=== PATIENT | female | born 1975 | race Caucasian/White ===

== ENCOUNTER 2022-02-12 08:12 | Outpatient (CLI) | payer OTHER, SELFPAY ==
--- NOTE | 2022-02-12 08:15 | CRLHL7_ITS ---
For Patients: As a result of the Cures Act, medical imaging exams and procedure reports are released immediately into your electronic medical record. You may view this report before your referring provider. If you have questions, please contact your health care provider. BILATERAL MAMMOGRAM WITH COMPUTER-AIDED DETECTION AND TOMOSYNTHESIS TECHNIQUE: CC and MLO views were obtained. These mammographic images have been obtained using full-field digital technique. These mammographic images were interpreted with the benefit of computer-aided detection. Breast Tomosynthesis was used in this interpretation. COMPARISON FILM: 01/16/21, 12/21/19, 11/24/18. FINDINGS: The breasts are heterogeneously dense, which may obscure small masses IMPRESSION: There is no radiographic evidence for malignancy. ASSESSMENT: BI-RADS Category 1: Negative RECOMMENDATION: Routine screening mammogram in 1 year. A lay language report of this examination will be provided to the patient. Donald Chase M.D. Diagnostic Radiologist [email or web address] TALON/kimo / be/Dictated by: Donald Chase MD @ 02/12/2022 9:37:00 AM (Electronically Signed)
== END 2022-02-12 08:13 | disposition home or self-care (01) ==
LOC: MAMMO 08:13
PROVIDERS: PCP Family Medicine; Visit Provider Family Medicine
DX: Z12.31 Encounter for screening mammogram for malignant neoplasm of breast (principal); R92.2 Inconclusive mammogram
CPT/HCPCS: 77063; 77067

== ENCOUNTER 2023-01-14 09:25 | Outpatient (CLI) | payer OTHER, SELFPAY | END 2023-01-14 09:26 | disposition home or self-care (01) | LOC: NFLDREF 01-15 10:08 | PROVIDERS: PCP Family Medicine; Referring Provider Family Medicine; Visit Provider Family Medicine | DX: Z00.00 Encounter for general adult medical examination without abnormal findings (principal); G43.909 Migraine, unspecified, not intractable, without status migrainosus; F41.8 Other specified anxiety disorders; M26.629 Arthralgia of temporomandibular joint, unspecified side; M54.2 Cervicalgia | CPT/HCPCS: 80053; 80076; 84439; 84443 ==

== ENCOUNTER 2023-02-18 07:57 | Outpatient (CLI) | payer OTHER, SELFPAY ==
--- NOTE | 2023-02-18 08:15 | CRLHL7_ITS ---
For Patients: As a result of the Century Cures Act, medical imaging exams and procedure reports are released immediately into your electronic medical record. You may view this report before your referring provider. If you have questions, please contact your health care provider. BILATERAL DIGITAL SCREENING MAMMOGRAM WITH TOMOSYNTHESIS AND COMPUTER-AIDED DETECTION CLINICAL HISTORY: Routine screening exam. COMPARISON: 02/12/22, 01/16/2021, 12/21/2019. TECHNIQUE: Digital mammogram in CC and MLO projections including computer-aided detection (CAD). Tomosynthesis utilized. BREAST COMPOSITION: The breasts are heterogeneously dense, which may obscure small masses. FINDINGS: RIGHT Breast: No suspicious findings. LEFT Breast: Focal asymmetric density 12 o`clock 3 cm from the nipple. IMPRESSION: LEFT breast asymmetry/mass. RECOMMENDATIONS: Additional mammographic views of the LEFT breast including 3D spot compression CC/MLO. LEFT breast ultrasound may also be required. BI-RADS Category 0: Incomplete: Need Additional Imaging Evaluation and/or Prior Mammograms for Comparison [facility] will contact the patient for follow-up. A lay language report of this examination will be provided to the patient. Dictated by Donald Chase MD @ 02/18/2023 10:49:12 AM jj/Dictated by: Donald Chase MD @ 02/18/2023 10:49:00 AM (Electronically Signed)
== END 2023-02-18 07:58 | disposition home or self-care (01) ==
LOC: MAMMO 07:58
PROVIDERS: PCP Family Medicine; Visit Provider Family Medicine
DX: Z12.31 Encounter for screening mammogram for malignant neoplasm of breast (principal); N63.20 Unspecified lump in the left breast, unspecified quadrant
CPT/HCPCS: 77063; 77067

== ENCOUNTER 2023-03-04 07:29 | Outpatient (CLI) | payer OTHER, SELFPAY ==
--- NOTE | 2023-03-04 07:45 | CRLHL7_ITS ---
For Patients: As a result of the Cures Act, medical imaging exams and procedure reports are released immediately into your electronic medical record. You may view this report before your referring provider. If you have questions, please contact your health care provider. LEFT DIAGNOSTIC MAMMOGRAM WITH TOMOSYNTHESIS LEFT BREAST ULTRASOUND CLINICAL HISTORY: LEFT breast mass/asymmetry. COMPARISON: 02/18/2023, 02/12/2022, 01/16/2021, 12/21/2019. TECHNIQUE: Digital LEFT mammogram in 2 projections. Real-time ultrasound imaging of LEFT breast with imaging documentation. Scanning was performed by both the technologist and the radiologist. BREAST COMPOSITION: There are scattered areas of fibroglandular density. FINDINGS: 3D spot compression CC/MLO left breast mammogram images submitted. Decreased conspicuity of the previously noted asymmetric density. No architectural distortion. Targeted sonogram LEFT breast 12 o`clock 3 cm from the nipple performed. In this location, there is no abnormality. Normal fibroglandular tissue is present. No fibrocystic change or solid mass. IMPRESSION: No evidence of malignancy. Normal additional mammogram images and normal targeted LEFT breast ultrasound. RECOMMENDATIONS: Annual bilateral screening mammography. BI-RADS Category 1: Negative Results and recommendations discussed with the patient. A lay language report of this examination will be provided to the patient. Dictated by Donald Chase MD @ 03/04/2023 9:01:49 AM/CRL:paul PT/Dictated by: Donald Chase MD @ 03/04/2023 9:01:00 AM (Electronically Signed)
--- NOTE | 2023-03-04 08:15 | CRLHL7_ITS ---
For Patients: As a result of the Century Cures Act, medical imaging exams and procedure reports are released immediately into your electronic medical record. You may view this report before your referring provider. If you have questions, please contact your health care provider. PLEASE SEE LEFT DIAGNOSTIC MAMMOGRAM OF SAME DAY. CRL:paul PT/Dictated by: Donald Chase MD @ 03/04/2023 9:01:00 AM (Electronically Signed)
== END 2023-03-04 07:30 | disposition home or self-care (01) ==
PROVIDERS: PCP Family Medicine; Visit Provider Family Medicine
DX: N63.20 Unspecified lump in the left breast, unspecified quadrant (principal); R92.8 Other abnormal and inconclusive findings on diagnostic imaging of breast
CPT/HCPCS: 76642; 77065; G0279

== ENCOUNTER 2023-05-06 08:52 | Outpatient (CLI) | payer OTHER, SELFPAY ==
--- NOTE | 2023-05-06 09:15 | CRLHL7_ITS ---
For Patients: As a result of the Century Cures Act, medical imaging exams and procedure reports are released immediately into your electronic medical record. You may view this report before your referring provider. If you have questions, please contact your health care provider. CLINICAL HISTORY: FAMILY HX RCC COMPARISON: none TECHNIQUE: Corbin scale and color Doppler images were acquired of the kidneys and urinary bladder. FINDINGS: Sonographic images reveal a symmetric appearance of the kidneys. There is no evidence of hydronephrosis, mass or calculus. The right kidney measures 10.1cm in length and the left kidney measures 10.3cm in length. The renal cortex appears of normal thickness. Normal color Doppler imaging of both kidneys. The urinary bladder appears normal. There is no evidence of bladder calculi or diverticula. IMPRESSION: Normal renal ultrasound. No renal mass. Dictated by Donald Chase MD @ 05/06/2023 9:46:31 AM (Electronically Signed)
== END 2023-05-06 08:53 | disposition home or self-care (01) ==
LOC: US 08:52
PROVIDERS: PCP Family Medicine; Visit Provider Family Medicine
DX: Z80.51 Family history of malignant neoplasm of kidney (principal)
CPT/HCPCS: 76775

== ENCOUNTER 2024-02-10 08:59 | Outpatient (CLI) | payer OTHER, SELFPAY ==
--- OUTSIDE RECORDS SUMMARY | 2024-02-10 09:07 | XMS_ITS | Clinical Summary ---
Author Organization [facility] Address [address] [place] [address] Care Team Providers Care Magazine Grinder Loader Name Role Phone Sofía Mueller MD Unavailable [phone] Johnny Hamilton MD Primary Care Provider [phone] Allergies Active Allergy Reactions Criticality Noted Date Comments Amoxicillin Hives 04/24/2014 Cephalosporins Hives 04/24/2014 Gabapentin Other (See Comments),Swelling 2013 & pain Penicillins Hives 04/24/2014 Prednisone 03/22/2018 Sulfanilamide Hives 04/24/2014 Medications Medication Sig Dispensed Refills Start Date End Date Status VALACYCLOVIR HCL PO Take 2,000 mg by mouth 2 times daily as needed Active Calcium Carbonate (CALCIUM 600 PO) Take 1 tablet by mouth daily Active multivitamin w/minerals (THERA-VIT-M) tablet Take 1 tablet by mouth daily Active Ascorbic Acid (VITAMIN C PO) Take 1,000 mg by mouth daily Active Cholecalciferol (VITAMIN D3 PO) Take 5,000 Units by mouth daily Active cetirizine (ZYRTEC) 10 MG tablet Take 10 mg by mouth daily Active MAGNESIUM OXIDE PO Take 600 mg by mouth daily Active Recluse-3 Fatty Acids (OMEGA-3 FISH OIL PO) Take 1 g by mouth daily Active Probiotic Product (PROBIOTIC DAILY PO) Take 1 capsule by mouth daily Active drospirenone-ethinyl estradiol (RAYMOND) 3-0.02 MG tabletIndications:En counter for other contraceptive management Take 1 tablet by mouth daily 84 tablet 3 04/29/2022 Active Additional Information Patient not taking.Reported on 01/21/2023 Azelastine HCl 137 MCG/SPRAY SOLN SPRAY 1-2 SPRAYS INTO BOTH NOSTRILS TWICE A DAY NEEDED 12/27/2022 Active sertraline (ZOLOFT) 25 MG tablet 11/01/2022 Active propranolol ER (INDERAL LA) 60 MG 24 hr capsule TAKE 1 CAP BY MOUTH DAILY AT BEDTIME 12/28/2022 Active valACYclovir (VALTREX) 1000 mg tablet TAKE 2 TABS BY MOUTH TWICE DAILY NEEDED FOR COLD SORES 05/20/2022 Active diazepam (VALIUM) 2 MG tablet 1 - 2 MG (0.5 - 1 X 2 MG) ORALLY THREE TIMES A DAY NEEDED FOR MUSCLE SPASM 12/06/2022 Active norethindrone (MICRONOR) 0.35 MG tabletIndications:Bi rth control counseling Take 1 tablet (0.35 mg) by mouth daily 112 tablet 3 01/21/2023 Active Drospirenone 4 MG TABSIndications:Serena menopause,Encounter for other contraceptive management Take 4 mg by mouth daily 84 tablet 3 04/22/2023 Active Resolved Problems Problem Noted Date Diagnosed Date Resolved Date Pain in both hands 10/12/2018 9 Bilateral carpal tunnel syndrome 10/12/2018 01/05/2019 Encounters Date Type Department Care Team Description 12/29/2023 [facility] Medical Advice [facility] [address] [place] [address] Neda Su from Last 3 Months Family History Medical History Relation Comments Esophageal Cancer Father Relation Status Comments Father Social History Tobacco Use Types Packs/Day Years Used Date Smoking Tobacco: Never Smokeless Tobacco: Never Tobacco Cessation:Counseling Given: No Alcohol Use Standard Drinks/Week Comments Yes 0 (1 standard drink = 0.6 oz pur e alcohol) rare PHQ-2 Answer Date Recorded PHQ-2 Score 0 01/21/2023 Adolescent Education Answer Date Record ed Getting School Help Needed Not on file 03/25 Sex and Gender Information Value Date Recorded Sex Assigned at Not on file Gender Identity Not on file Sexual Orientation Straight 04/14/2021 8: 29 AM CDT Last Filed Vital Signs Vital Sign Reading Time Taken Comments Blood Pressure 110/70 04/22/2023 9:12 AM CDT Pulse 80 04/29/2022 10:19 AM CDT Temperature 36.9 ??C (98.5 ??F) 03/22/2018 8:29 PM CD T Respiratory Rate 18 03/22/2018 8:29 PM CDT Oxygen Saturation 96% 03/22/2018 10:00 PM CDT Inhaled Oxygen Concentration - - Weight 77.1 kg (170 lb) 04/22/2023 9:12 AM CDT Height 157.5 cm (5' 2) 04/22/2023 9:12 AM CDT Body Mass Index 31.09 04/22/2023 9:12 AM CDT Plan of Treatment Upcoming Encounters Date Type Department Care Team (Late st Contact Info) Description 05/04/2024 9:30 AM CDT Office Visit [facility] [address] [place] [address] Sofía Mueller MD [address] [place] [address] Health Maintenance Due Date Last Done Comments ADVANCE CARE PLANNING 1977 ANNUAL REVIEW OF HM ORDERS 1977 CT COLONOGRAPHY 1977 FIT 1977 FLEX SIG 1977 sDNA (Cologuard) 1977 COLONOSCOPY 1987 COLORECTAL CANCER SCREENING 1987 HIV SCREENING 1992 HEPATITIS C SCREENING 1995 HEPATITIS B IMMUNIZATION (1 of 3 - 19+ 3-dose series) 1996 LIPID 2017 GLUCOSE 03/22/2021 03/22/2018 MAMMO SCREENING 01/16/2022 01/16/2021 COVID-19 Vaccine (4 - 2022-2 4 season) 2023 05/24/2021, 08/20/2020, 07/23/2020 DTAP/TDAP/TD IMMUNIZATION (2 - Td or Tdap) 03/20/2023 03/20/2013 PHQ-2 (once per calendar year) 2023 01/21/2023, 04/29/2022, 04/21/2021 INFLUENZA VACCINE (#1) 2024 , 05/16/2020 YEARLY PREVENTIVE VISIT 04/22/2024 04/22/20 23, 04/21/2021 HPV TEST 04/21/2026 04/21/2021, 10/07/2016 PAP 04/21/2026 04/21/2021, 10/07/2016, 10/07/2016 HPV IMMUNIZATION Aged Out No longer e ligible based on patient's age to complete this topic IPV IMMUNIZATION Aged Out No longer e ligible based on patient's age to complete this topic MENINGITIS IMMUNIZATION Aged Out No l onger eligible based on patient's age to complete this topic Pneumococcal Vaccine: Pediatrics (0 to 5 Years) and At-Risk Patients (6 to 64 Years) Aged Out No longer eligible b ased on patient's age to complete this topic RSV MONOCLONAL ANTIBODY Aged Out No l onger eligible based on patient's age to complete this topic Procedures Procedure Name Priority Date/Time Associated Diagnosis Comments GYNECOLOGIC CYTOLOGY Routine 04/21/2021 10:29 AM CDT Pap smear for cervical cancer screening HPV HIGH RISK TYPES DNA CERVICAL Routine 04/21/2021 10:29 AM CDT Pap smear for cervical cancer screening COMPREHENSIVE METABOLIC PANEL STAT 03/22/2018 8:45 PM CDT PVC's (premature ventricular contractions) from Last 3 Months or Most Recently Relevant to Health Maintenance Results * Pap imaged thin layer screen with HPV - recommended age 30 - 65 (04/21/2021 10:29 AM CDT) Interpretation Negative for Intraepithelial Lesion or Malignancy (NILM) 04/23/2021 10:14 AM CDT [facility] Specimen Adequacy Satisfactory for evaluation, endocervical/logan sformation zone component absent 04/23/2021 10:14 AM CDT [facility] Clinical Information none 04/23/2021 10:14 AM CDT [facility] LMP/Menopause Date 04/17/2021 04/23/2021 10:14 AM CDT [facility] Reflex Testing Yes regardless of result 04/23/2021 10:14 AM CDT [facility] Previous Abnormal? No 04/23/2021 10:14 AM CDT [facility] Performing Labs The technical component of this testing was completed at [facility] 04/23/2021 10:14 AM CDT [facility] Brushing CERVIX UTERI STRUCTURE / Unknown 04/21/2021 10:29 AM CDT 04/21/2021 10:50 AM CDT Sofía MENDOZA [facility] [address] [place] [address], [facility] [phone] * HPV High Risk Types DNA Cervical (04/21/2021 10:29 AM CDT) Other HR HPV Negative Negative 04/27/2021 1:58 PM CDT [facility] HPV16 DNA Negative Negative 04/27/2021 1:58 PM CDT [facility] HPV18 DNA Negative Negative 04/27/2021 1:58 PM CDT [facility] FINAL DIAGNOSIS This patient's sample is negative for HPV DNA. This test was developed and its performance characteristics determined by the [facility], [facility]. It has not been cleared or approved by the FDA. The laboratory is regulated under CLIA as qualified to perform high-complexity testing. This test is used for clinical purposes. It should not be regarded as investigational or for research. METHODOLOGY: The Shikha Wes 4800 system uses automated extraction, simultaneous amplification of HPV (L1 region) and beta-globin, followed by real time detection of fluorescent labeled HPV and beta globin using specific oligonucleotide probes. The test specifically identified types HPV 16 DNA and HPV 18 DNA while concurrently detecting the rest of the high risk types (31, 33, 35, 39, 45, 51, 52, 56, 58, 59, 66 or 68). COMMENTS: This test is not intended for use as a screening device for woman under age 30 with normal cervical cytology. Results should be correlated with cytologic and histologic findings. Close clinical followup is recommended. 04/27/2021 1:58 PM CDT [facility] Brushing CERVIX UTERI STRUCTURE / Unknown Non-blood Collection / Unknown 04/21/2021 10:29 AM CDT 04/24/2021 9:06 AM CDT Sofía Mueller MD LAB - BLOOD ORDERABL ES [facility] [address] [place] [address], [facility] [phone] * Comprehensive metabolic panel (03/22/2018 8:45 PM CDT) Sodium 141 133 - 144 mmol/L 03/22/2018 9:[address] [facility] Potassium 3.5 3.4 - 5.3 mmol/L 03/22/2018 9:[address] [facility] Chloride 105 94 - 109 mmol/L 03/22/2018 9:[address] [facility] Carbon Dioxide 25 20 - 32 mmol/L 03/22/2018 9:[address] [facility] Anion Gap 11 3 - 14 mmol/L 03/22/2018 9:[address] [facility] Glucose 92 70 - 99 mg/dL 03/22/2018 9:[address] [facility] Urea Nitrogen 25 7 - 30 mg/dL 03/22/2018 9:[address] [facility] Creatinine 0.90 0.52 - 1.04 mg/dL 03/22/2018 9:[address] [facility] GFR Estimate 69 >60 mL/min/1.7 m2 03/22/2018 9:[address] [facility] Comment:Non GFR Calc GFR Estimate If Black 83 >60 mL/min/1.7 m2 03/22/2018 9:[address] [facility] Comment: GFR Calc Calcium 8.5 8.5 - 10.1 mg/dL 03/22/2018 9:[address] [facility] Bilirubin Total 0.3 0.2 - 1.3 mg/dL 03/22/2018 9:[address] [facility] Albumin 4.2 3.4 - 5.0 g/dL 03/22/2018 9:15 PM CDT [facility] Protein Total 7.4 6.8 - 8.8 g/dL 03/22/2018 9:15 PM CDT [facility] Alkaline Phosphatase 60 40 - 150 U/L 03/22/2018 9:15 PM CDT [facility] ALT 35 0 - 50 U/L 03/22/2018 9:15 PM CDT [facility] AST 21 0 - 45 U/L 03/22/2018 9:15 PM CDT [facility] Blood specimen (specimen) 03/22/2018 8:45 PM CDT 03/22/2018 8:46 PM CDT Teresa Harvey MD LAB - BLOOD ORDERA BLES [facility] [address] [place], [place] [address] [phone] from Last 3 Months or Most Recently Relevant to Health Maintenance Advance Directives For more information, please contact: [phone] * Full Code (Latest Code Status on File) Date Activated Date Inactivated Comments 05/28/2016 10:44 AM Care Teams Magazine Grinder Loader Relationship Specialty Start Date End Date Johnny Hamilton MD [address] [place], [place] [address] PCP - General 01/19/23 Sofía Mueller MD [address] [place] [address] Assigned OBGYN Provider 04/26/21
--- OUTSIDE RECORDS SUMMARY | 2024-02-10 09:08 | XMS_ITS | Clinical Summary ---
Author Organization [facility] Address [address] [place] [address] Care Team Providers Care Corporate Concierge Name Role Phone Unavailable Primary Care Provider Unavailabl e Source Comments You are receiving this document as you are listed as the primary care provider,follow-up provider, or the patient has been referred to you for consultation.This is in compliance with the Medicare and[facility] EHR Incentive Program,which states Providers who transition their patient to another setting of careor provider of care or refers their patient to another provider of care shouldprovide summary care record for each transition of care or referral. [facility] Allergies Active Allergy Reactions Criticality Noted Date Comments Cephalosporins 08/29/2010 PN: LW Reaction: HIVES Penicillins 08/29/2010 PN: LW Reaction: HIVES Review Contrast Media 08/29/2010 PN: LW CM1: >>> NO CONTRAST ADVERSE REACTION <<< Reaction : Sulfa Antibiotics 08/29/2010 PN: LW Reaction: HIVES Medications Medication Sig Dispensed Refills Start Date End Date Status unknown medication Indications: PN: 09/04/2010 Active doxycycline hyclate (AKA PERIOSTAT) 20 MG tablet Take 1 tablet by mouth 2 times daily. LW Addl Instr:Indicated for: Periodontitis 60 3 08/29/2010 Active Multiple Vitamins-Minerals (MULTIVITAMIN OR) Take 1 tablet by mouth daily (every 24 hours). 100 13 08/29/2010 Active Social History Tobacco Use Types Packs/Day Years Used Date Smoking Tobacco: Never Sex and Gender Information Value Date Recorded Sex Assigned at Not on file Gender Identity Not on file Sexual Orientation Not on file Last Filed Vital Signs Vital Sign Reading Time Taken Comments Blood Pressure - - Pulse - - Temperature 36.8 ??C (98.2 ??F) 09/04/2010 8:10 AM CS T C: 36.8 C Respiratory Rate - - Oxygen Saturation - - Inhaled Oxygen Concentration - - Weight - - Height - - Body Mass Index - - Plan of Treatment Health Maintenance Due Date Last Done Comments Cervical Cancer Screening Due 1977 Colon Cancer Screening Plan Due 1977 Hep C Screening (Preventive Services) 1977 Mammogram 1977 HIV Screening (Preventive Services) 1993 Adult Preventive Visit 1995 DTaP/Tdap/Td (1 - Tdap) 1996 HepB (1) 1996 Cholesterol 2022 COVID-19 Vaccine (1 - 2022-2 4 season) 2023 Influenza (#1) 2024 Zoster/Shingles (1 of 2) 2027 HepA Aged Out No longer eligi ble based on patient's age to complete this topic Hib Aged Out No longer eligi ble based on patient's age to complete this topic IPV (Polio) Aged Out No longer eligi ble based on patient's age to complete this topic MCV4 Aged Out No longer eligi ble based on patient's age to complete this topic Pneumococcal Aged Out No longer eligi ble based on patient's age to complete this topic
--- OUTSIDE RECORDS SUMMARY | 2024-02-10 09:08 | XMS_ITS | Encounter Summary ---
Author Organization [facility] Address [address] [place] [address]. [place] [address] Care Team Providers Care Field Consultant Name Role Phone Rashel Call MD Primary Care Provider Sofía Mueller MD Unavailable [phone] Johnny Hamilton MD Primary Care Provider [phone] Encounter Details Date Type Department Care Team (Late st Contact Info) Description 05/22/2021 MyC Medical Advice [facility] [address] [place] [address] Sofía Mueller MD [address] [place] [address] Contraceptive management (Primary Dx) Social History Tobacco Use Types Packs/Day Years Used Date Smoking Tobacco: Never Smokeless Tobacco: Never Alcohol Use Standard Drinks/Week Comments Yes 0 (1 standard drink = 0.6 oz pur e alcohol) rare PHQ-2 Answer Date Recorded PHQ-2 Score 0 04/21/2021 Sex and Gender Information Value Date Recorded Sex Assigned at Not on file Gender Identity Not on file Sexual Orientation Straight 04/14/2021 8: 29 AM CDT documented as of this encounter Plan of Treatment Upcoming Encounters Date Type Department Care Team (Late st Contact Info) Description 05/04/2024 9:30 AM CDT Office Visit [facility] [address] [place] [address] Sofía Mueller MD [address] [place] [address] documented as of this encounter Visit Diagnoses Diagnosis Contraceptive management- Primary Unspecified contraceptive management documented in this encounter Care Teams Field Consultant Relationship Specialty Start Date End Date Rashel Call MD PCP - General Family Practice 04/15/14 01/18/23 Johnny Hamilton MD [address] [place] [address] PCP - General 01/19/23 Sofía Mueller MD [address] [place] [address] Assigned OBGYN Provider 04/26/21 documented as of this encounter
--- OUTSIDE RECORDS SUMMARY | 2024-02-10 09:08 | XMS_ITS | Encounter Summary ---
Author Organization [facility] Address [address] [place] [address] Care Team Providers Care Roofing Foreman Name Role Phone Sofía Mueller MD Unavailable [phone] Johnny Hamilton MD Primary Care Provider [phone] Encounter Details Date Type Department Care Team (Late st Contact Info) Description 12/29/2023 MyC Medical Advice [facility] [address] [place] [phone] Neda Su Social History Tobacco Use Types Packs/Day Years [...] Encounters Date Type Department Care Team (Late Contact Info) Description 05/04/2024 9:30 AM CDT Office Visit [facility] [address] [place] [phone] Sofía Mueller MD [address] [place] [address] documented as of this encounter Visit Diagnoses Not on filedocumented in this encounter Care Teams Roofing Foreman Relationship Specialty Start Date End Date Johnny Hamilton MD [address] [place] [address] PCP - General 01/19/23 Sofía Mueller MD [address] [place] [address] Assigned OBGYN Provider 04/26/21 documented as of this encounter
--- OUTSIDE RECORDS SUMMARY | 2024-02-10 09:08 | XMS_ITS | Encounter Summary ---
Author Organization [place] Address [address] [place] [address]. [place] [address] Care Team Providers Care Fish Technologist Name Role Phone Rashel Call MD Primary Care Provider [phone] Sofía Mueller MD Unavailable [phone] Johnny Hamilton MD Primary Care Provider [phone] Encounter Details Date Type Department Care Team (Late st Contact Info) Description 02/20/2019 MyC Medical Advice [facility] [address] [facility] [address] [place], [place] [address] Jimime Owen DO [facility] [address] [place] [address] Social History Tobacco Use Types Packs/Day Years Used Date Smoking Tobacco: Never Smokeless Tobacco: Never Alcohol Use Standard Drinks/Week Comments Yes 0 (1 standard drink = 0.6 oz pur e alcohol) rare Sex and Gender Information Value Date Recorded Sex Assigned at Not on file Gender Identity Not on file Sexual Orientation Straight 04/14/2021 8: 29 AM CDT documented as of this encounter Plan of Treatment Upcoming Encounters Date Type Department Care Team (Late st Contact Info) Description 05/04/2024 9:30 AM CDT Office Visit [facility] [address] [place] [phone] Sofía Mueller MD [address] [place] [address] documented as of this encounter Visit Diagnoses Not on filedocumented in this encounter Care Teams Fish Technologist Relationship Specialty Start Date End Date Rashel Call MD PCP - General Family Practice 04/15/14 01/18/23 Johnny Hamilton MD [address] [place] [address] PCP - General 01/19/23 Sofía Mueller MD [address] [place] [address] Assigned OBGYN Provider 04/26/21 documented as of this encounter
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
--- OUTSIDE RECORDS SUMMARY | 2024-02-10 09:08 | XMS_ITS | Referral Summary ---
Author Organization [place] Address [address] [place] [address] Care Team Providers Care Volunteer Services Specialist Name Role Phone Sofía Mueller MD Unavailable [phone] Johnny Hamilton MD Primary Care Provider [phone] Encounters Date Type Department Care Team Description 12/29/2023 MyC Medical Advice [facility] [address] [place] [phone] Neda Su from Last 3 Months Allergies Active Allergy Reactions Criticality Noted Date [...] Take 600 mg by mouth daily Active [place]-3 Fatty Acids (OMEGA-3 FISH OIL PO) Take [...] 9 Bilateral carpal tunnel syndrome 10/12/2018 01/05/2019 Social History Tobacco Use Types Packs/Day Years [...] Description 05/04/2024 9:30 AM CDT Office Visit [facility] [address] [place] [address] Sofía Mueller MD [address] [place] [address] Procedures Procedure Name Priority Date/Time Associated Diagnosis [...] or Malignancy (NILM) 04/23/2021 10:14 AM CDT [facility] Specimen Adequacy Satisfactory for evaluation, endocervical/logan sformation zone component absent 04/23/2021 10:14 AM CDT [facility] Clinical Information none 04/23/2021 10:14 AM CDT [facility] LMP/Menopause Date 04/17/2021 04/23/2021 10:14 AM CDT [facility] Reflex Testing Yes regardless of result 04/23/2021 10:14 AM CDT [facility] Previous Abnormal? No 04/23/2021 10:14 AM CDT [facility] Performing Labs The technical component of this testing was completed at [facility] 04/23/2021 10:14 AM CDT [facility] Brushing CERVIX UTERI STRUCTURE / Unknown 04/21/2021 10:29 AM CDT 04/21/2021 10:50 AM CDT Sofía KAMARA - MARITZA MENDOZA [facility] [address] [place] [address], [facility] [phone] * HPV High Risk Types DNA Cervical (04/21/2021 10:29 AM CDT) Other HR HPV Negative Negative 04/27/2021 1:58 PM CDT [email or web address] HPV16 DNA Negative Negative 04/27/2021 1:58 PM CDT [facility] [email or web address] HPV18 DNA Negative Negative 04/27/2021 1:58 PM CDT [facility] [email or web address] FINAL DIAGNOSIS This patient's sample is negative for HPV DNA. This test was developed and its performance characteristics determined by the [facility], Molecular Diagnostics Laboratory. It has not been [...] followup is recommended. 04/27/2021 1:58 PM CDT [facility] Brushing CERVIX UTERI STRUCTURE / Unknown Non-blood Collection / Unknown 04/21/2021 10:29 AM CDT 04/24/2021 9:06 AM CDT Sofía Mueller MD LAB - BLOOD ORDERABL ES [facility] Molecular Diagnostics Lab [address] [place] [address], [facility] [phone] * Comprehensive metabolic panel (03/22/2018 8:45 PM CDT) Sodium 141 133 - 144 mmol/L 03/22/2018 9:15 PM [facility] Potassium 3.5 3.4 - 5.3 mmol/L 03/22/2018 9:15 PM [facility] Chloride 105 94 - 109 mmol/L 03/22/2018 9:15 PM [facility] Carbon Dioxide 25 20 - 32 mmol/L 03/22/2018 9:15 PM [facility] Anion Gap 11 3 - 14 mmol/L 03/22/2018 9:15 PM [facility] Glucose 92 70 - 99 mg/dL 03/22/2018 9:15 PM [facility] Urea Nitrogen 25 7 - 30 mg/dL 03/22/2018 9:15 PM [facility] Creatinine 0.90 0.52 - 1.04 mg/dL 03/22/2018 9:15 PM [facility] GFR Estimate 69 >60 mL/min/1.7 m2 03/22/2018 9:15 PM [facility] Comment:Non GFR Calc GFR Estimate If Black 83 >60 mL/min/1.7 m2 03/22/2018 9:15 PM [facility] Comment: GFR Calc Calcium 8.5 8.5 - 10.1 mg/dL 03/22/2018 9:15 PM [facility] Bilirubin Total 0.3 0.2 - 1.3 mg/dL 03/22/2018 9:15 PM CDT [facility] Albumin 4.2 3.4 - 5.0 g/dL 03/22/2018 9:15 PM CDT [facility] Protein Total 7.4 6.8 - 8.8 g/dL 03/22/2018 9:15 PM CDT [facility] Alkaline Phosphatase 60 40 - 150 U/L 03/22/2018 9:15 PM T [facility] ALT 35 0 - 50 U/L 03/22/2018 9:15 PM CDT [facility] AST 21 0 - 45 U/L 03/22/2018 9:15 PM CDT [facility] Blood specimen (specimen) 03/22/2018 8:45 PM CDT 03/22/2018 8:46 PM CDT Teresa Harvey MD LAB - BLOOD ORDERA BLES [facility] [address] [place] [address], [facility] [phone] from Last 3 Months or Most Recently Relevant to Health Maintenance Advance Directives For more information, please contact: [phone] * Full Code (Latest Code Status on File) Date Activated Date Inactivated Comments 05/28/2016 10:44 AM Care Teams Volunteer Services Specialist Relationship Specialty Start Date End Date Johnny Hamilton MD [address] [place] [address] PCP - General 01/19/23 Sofía Mueller MD [address] [place] [address] Assigned OBGYN Provider 04/26/21
--- OUTSIDE RECORDS SUMMARY | 2024-02-10 09:08 | XMS_ITS | Encounter Summary ---
Author Organization [place] Address [address] [place] [address]. [place] [address] Care Team Providers Care Intensivist Name Role Phone Rashel Call MD Primary Care Provider [phone] Sofía Mueller MD Unavailable [phone] Johnny Hamilton MD Primary Care Provider [phone] Encounter Details Date Type Department Care Team (Late st Contact Info) Description 07/30/2021 MyC Medical Advice [facility] [address] [place] [address] Sofía Mueller MD [address] [place] [address] Social History Tobacco Use Types Packs/Day Years [...] Office Visit [facility] [address] [place] [address] Sofía Mueller MD [address] [place] [address] documented as of this encounter Visit Diagnoses Not on filedocumented in this encounter Care Teams Intensivist Relationship Specialty Start Date End Date Rashel Call MD PCP - General Family Practice 04/15/14 01/18/23 Johnny Hamilton MD [address] [place] [address] PCP - General 01/19/23 Sofía Mueller MD [address] [place] [address] Assigned OBGYN Provider 04/26/21 documented as of this encounter
--- OUTSIDE RECORDS SUMMARY | 2024-02-10 09:08 | XMS_ITS | Clinical Summary ---
Author Organization [employer] Address [place], [place] [address] Care Team Providers Care Plywood And Veneer Repairer Name Role Phone Johnny Hamilton MD Primary Care Provider [phone] Rashel Call MD Unavailable [phone] Allergies Active Allergy Reactions Criticality Noted Date Comments Cefuroxime 04/07/2007 Gabapentin Edema 03/20/2013 Penicillins 04/07/2007 Sulfa (Sulfonamide Antibiotics) 11/2006 Medications Medication Sig Dispensed Refills Start Date End Date Status ZYRTEC ORAL None Entered 0 Active tiZANidine (ZANAFLEX) 2 mg tablet Take 1 tablet by mouth every 6 hours if needed for Muscle Spasm. Take 2 tablets at bedtime 0 03/20/2013 Active norethin larry-eth estrad-fe, 1.5-30 mg-mcg, (MICROGESTIN FE) 1.5 mg-30 mcg (21)/75 mg (7) tabletIndications:Enco unter for surveillance of contraceptives Take 1 tablet by mouth once daily. 84 tablet 4 09/26/2015 Active miscellaneous medical supply miscIndications:Unstab le ankle, unspecified laterality As directed. Please visit [email or web address] and purchase: EdemaWear Open Toe Stockings - Size Small (Grover Blue Stripe) 1 Each 08/05/2022 Active Active Problems Problem Noted Date Diagnosed Date ADHD (attention deficit hyperactivity disorder) 12/15/2012 BV (bacterial vaginosis) 03/18/2012 Pain in joint, ankle and foot 04/12/2007 Encounters Date Type Department Care Team Description 02/09/2024 3:00 PM CDT Office Visit [facility] [address] [place] [address] Jaun Sloan MD Arrived 02/07/2024 Travel 01/13/2024 Orders Only [facility] [address] [place] [address] Gracy Yan 1 scan: (1-Ord) Zio Report from Last 3 Months Immunizations Name Administration Dates Next Due Tdap 03/20/2013 Family History Medical History Relation Name Comments Cancer Father stomach /esopha chito Hypertension Father Arthritis Mother Diabetes Mother pre diabetic Hypertension Mother Allergies Sister 2 Relation Name Status Comments Brother 1 Alive Brother 2 Alive Father (Age 49 yrs) stomac h and esophagus cancer Maternal Grandfather Maternal Grandmother Mother Alive Paternal Grandfather Paternal Grandmother (Age 80's) ? Sister 1 Alive Sister 2 Social History Tobacco Use Types Packs/Day Years Used Date Smoking Tobacco: Never Smokeless Tobacco: Never Tobacco Cessation:Counseling Given: Yes Alcohol Use Standard Drinks/Week Comments Not Currently 0 (1 standard drink = 0.6 oz pur e alcohol) Very little--0-1 per month. Social Connections Answer Date Recorded Frequency of Communication with Friends and Fami ly Not on file 02/09/2024 Sex and Gender Information Value Date Recorded Sex Assigned at Not on file Gender Identity Not on file Sexual Orientation Not on file Obstetrics History Para Term AB IAB SAB Ectopic Multiple Livin g Live Births 0 0 0 0 0 0 0 0 0 0 Last Filed Vital Signs Vital Sign Reading Time Taken Comments Blood Pressure 110/70 09/26/2015 1:50 PM CDT Pulse 68 09/26/2015 1:50 PM CDT Temperature 37 ??C (98.6 ??F) 04/05/2015 1:09 PM CDT Respiratory Rate 14 04/05/2015 1:09 PM CDT Oxygen Saturation 98% 04/05/2015 1:09 PM CDT Inhaled Oxygen Concentration - - Weight 59 kg (130 lb) 09/26/2015 1:50 PM CDT Height 159.4 cm (5' 2.75) 09/26/2015 1:50 PM CD T Body Mass Index 23.21 09/26/2015 1:50 PM CDT Plan of Treatment Health Maintenance Due Date Last Done Comments HIV for age 15-65 1992 Hepatitis C screening for age 18-79 1995 BMI (ht and wt on same day) for age 18+ 09/25/2016 09/26/2015 Depression screening for age 12+ 09/25/2016 09/26/2015 Pap test for age 21-65 10/08/2019 7, 10/07/2016, 05/03/2014, Additional history exists Colonoscopy through age 75 2022 Lipids for age 45-75 2022 03/20/2013 Mammogram for age 45-75 2022 COVID-19 vaccine series (2022- season) 2023 05/24/2021, 08/20/2020, 07/23/2020 Tetanus booster 03/20/2023 03/20/2013 Influenza for age 9-49 03/04/2024 Tdap Completed 03/20/2013 Pneumococcal series for age 6-64 Aged Out No longer eligible based on patient's age to complete this topic Procedures Procedure Name Priority Date/Time Associated Diagnosis Comments EXTENDED HOLTER Routine 01/16/2024 Cardiac arrhythmia SATELLITE INSTALLATION TECHNICIAN THIN PREP PAP SCREEN IMAGED Routine 10/07/2016 8:30 AM CDT LIPID PANEL W REFLEX MEASURED LDL Routine 03/20/2013 8:35 AM CDT Lipid screening from Last 3 Months or Most Recently Relevant to Health Maintenance Results * EXTENDED HOLTER (01/16/2024) Johnny Hamilton MD CARDIAC SERVICES ORD * SATELLITE INSTALLATION TECHNICIAN THIN PREP PAP SCREEN IMAGED (10/07/2016 8:30 AM CDT) Case Report Gynecologic Cytology Report ? Case: [id number] ? Authorizing Provider: ??Josephine Mohamud ?Collected: ? 10/07/2016 0830 ? MD Bella ? First Screen: ?Ginger Rod ? Received: ?10/08/2016 1723 ? Specimen: ?SATELLITE INSTALLATION TECHNICIAN ThinPrep Vial Screening, Cervical/Vaginal ? 10/20/2016 10:38 AM [facility] [employer] [facility]- ENTRAL LABORATORY INTERPRETATION/ RESULT NEGATIVE FOR INTRAEPITHELIAL LESION OR MALIGNANCY (NIL) (none) 10/20/2016 10:38 AM [facility] ENTRAL LABORATORY IMEN ADEQUACY Satisfactory for evaluation No endocervical component seen Scant cellularity 10/20/2016 10:38 AM [facility] HPV REQUEST HPV and PAP 10/20/2016 10:38 AM CDT [facility] [employer] LABORATORY-C ENTRAL LABORATORY Date of LMP 09/09/2016 10/20/2016 10:38 AM CDT [facility] LABORATORY-C ENTRAL LABORATORY Last Pap Date 10/20/2016 10:38 AM CDT [facility]- ENTRAL LABORATORY Comment:2013 Last Pap Result NIL 7 10:38 AM CDT [facility] LABORATORY-C ENTRAL LABORATORY Menstrual Status Hormonally Suppressed 10/20/2016 10:38 AM T [facility] ENTRAL LABORATORY Comment:Microgestin Automated Review Successful 10/20/2016 10:38 AM CDT [facility] LABORATORY-C ENTRAL LABORATORY Comment:Specimen processed s uccessfully by automated type photography supervisor device, ThinPrep Imaging System, [employer] ANCILLARY TESTING SATELLITE INSTALLATION TECHNICIAN HPV Ordered, Please see separate report 10/20/2016 10:38 AM CDT [facility] LABORATORY-C ENTRIA LABORATORY Note The pap test is a screening technique, not a diagnostic procedure. ??It is used primarily to screen for squamous cancers and precursor lesions. ??Published studies have shown that it is subject to both false negative and false positive results. ??The pap test should not be used as the sole means to diagnose or exclude pre-malignant and malignant lesions. Interpreted at [facility] ([facility], [facility], [facility], [facility], [facility], [facility], [facility]) 10/20/2016 10:38 AM CDT [facility] LABORATORY-C ENTRIA LABORATORY Other (Cervical/Vagina l) 10/07/2016 8:30 AM CDT 10/08/2016 5:23 PM CDT Josephine Mohamud MD PATHOLOGY/ CYTOLOGY [facility] LABORATORY-CENTRAL LABORATORY [address] [place] [address], * LIPID PANEL W REFLEX MEASURED LDL (03/20/2013 8:35 AM CDT) CHOLESTEROL,TOTA L 180 100 - 199 mg/dL [facility] TRIGLYCERIDES 77 <150 mg/dL [facility] HDL CHOLESTEROL 71 >40 mg/dL [facility] CHOL/HDL RATIO 2.54 <4.50 [facility] NON-HDL CHOLESTEROL 109 Undefined mg/dL [facility] LDL CHOLESTEROL 94 <131 mg/dL [facility] PATIENT STATUS Non-Fast ing [facility] Blood specimen (specimen) BLOOD SPECIMEN / Unknown 03/20/2013 8:35 AM CDT 03/20/2013 8:27 AM CDT Josephine Mohamud MD CHEMISTRY [facility] INTERNAL ZIP [address] [place] [address] from Last 3 Months or Most Recently Relevant to Health Maintenance Advance Directives * Full Code (Latest Code Status on File) Date Activated Date Inactivated Comments 04/12/2007 7:32 AM 04/12/2007 12:53 PM Care Teams Plywood And Veneer Repairer Relationship Specialty Start Date End Date Johnny Hamilton MD [address], [place] [address] PCP - General Family Practice 05/05/22 Rashel Call MD [address] [facility] [place] [address] Family Practice 05/05/22
--- OUTSIDE RECORDS SUMMARY | 2024-02-10 09:08 | XMS_ITS | Encounter Summary ---
Author Organization [employer] Address [address] [place] [address]. [place] [address] Care Team Providers Care Atm Servicer Name Role Phone aRshel Call MD Primary Care Provider Sofía Mueller MD Unavailable [phone] Johnny Hamilton MD Primary Care Provider [phone] Reason for Visit * Reason Onset Date Comments Contraception 01/05/2023 Encounter Details Date Type Department Care Team (Late st Contact Info) Description 01/05/2023 MyC Medical Advice [facility] [address] [place] [address] Sofía Mueller MD [address] [place] [address] Contraception Social History Tobacco Use Types Packs/Day Years Used Date Smoking Tobacco: Never Smokeless Tobacco: Never Alcohol Use Standard Drinks/Week Comments Yes 0 (1 standard drink = 0.6 oz pur e alcohol) rare PHQ-2 Answer Date Recorded PHQ-2 Score 0 04/29/2022 Sex and Gender Information Value Date Recorded Sex Assigned at Not on file Gender Identity Not on file Sexual Orientation Straight 04/14/2021 8: 29 AM CDT documented as of this encounter Miscellaneous Notes * Telephone Encounter - Eleni Ortiz RN - 01/13/2023 8:43 AM CDT Appt changed per pt's request. ASHOK Knowles * Telephone Encounter - Eleni Ortiz RN - 01/07/2023 11:55 AM CDT Please see Protagent msgs. Pt requesting new OCP due to migraines. Currently on levonorgestrel-ethinyl estradiol (AVIANE) Last OV: 04/29/23 ASHOK Knowles * Telephone Encounter - Eleni Ortiz RN - 01/05/2023 9:24 AM CDT Pt advised via [employer]. ASHOK Knowles documented in this encounter Plan of Treatment Upcoming Encounters Date Type Department Care Team (Late st Contact Info) Description 05/04/2024 9:30 AM CDT Office Visit [facility] [address] [place] [phone] Sofía Mueller MD [address] [place] [address] documented as of this encounter Visit Diagnoses Not on filedocumented in this encounter Care Teams Atm Servicer Relationship Specialty Start Date End Date Rashel Call MD PCP - General Family Practice 04/15/14 01/18/23 Johnny Hamilton MD [address] [place] [address] PCP - General 01/19/23 Sofía Mueller MD [address] [place] [address] Assigned OBGYN Provider 04/26/21 documented as of this encounter
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
--- OUTSIDE RECORDS SUMMARY | 2024-02-10 09:08 | XMS_ITS | Encounter Summary ---
Author Organization [place] Address [address] [place] [address]. [place] [address] Care Team Providers Care Vacuum Caster Name Role Phone Rashel Call MD Primary Care Provider [phone] Sofía Mueller MD Unavailable [phone] Johnny Hamilton MD Primary Care Provider [phone] Encounter Details Date Type Department Care Team (Late st Contact Info) Description 09/13/2018 MyC Medical Advice [facility] [address] [facility] [address] [place], [place] [address] Jimmie Owen DO [facility] [address] [facility] [address] [place] [address] Social History Tobacco Use Types Packs/Day Years [...] Description 05/04/2024 9:30 AM CDT Office Visit [facility] [address] [place] [address] [place] [phone] Sofía Mueller MD [address] [place] [address] documented as of this encounter Visit Diagnoses Not on filedocumented in this encounter Care Teams Vacuum Caster Relationship Specialty Start Date End Date Rashel Call MD PCP - General Family Practice 04/15/14 01/18/23 Johnny Hamilton MD [address] [place] [address] PCP - General 01/19/23 Sofía Mueller MD [address] [place] [address] Assigned OBGYN Provider 04/26/21 documented as of this encounter
== END 2024-02-10 09:00 | disposition home or self-care (01) ==
PROVIDERS: PCP Family Medicine; Visit Provider Family Medicine
DX: I49.9 Cardiac arrhythmia, unspecified (principal); R53.83 Other fatigue; Z13.220 Encounter for screening for lipoid disorders
CPT/HCPCS: 80053; 80061; 84443

== ENCOUNTER 2024-03-09 07:53 | Outpatient (CLI) | payer OTHER, SELFPAY ==
--- OUTSIDE RECORDS SUMMARY | 2024-03-09 07:56 | XMS_ITS | Encounter Summary ---
Author Organization [place] Address [address] [place] [address] Care Team Providers Care Senior Teradata Developer Name Role Phone Sofía Mueller MD Unavailable [phone] Johnny Hamilton MD Primary Care Provider [phone] Lina Daniels MD Unavailable [phone] Encounter Details Date Type Department Care Team (Latest Contact Info) Description 02/29/2024 Travel Social History Tobacco Use Types Packs/Day Years [...] Care Team (Late st Contact Info) Description 04/11/2024 9:40 AM CDT Office Visit [facility] [place] [address] [facility] [address] [place] [address] Lina Daniels MD [facility] [address] [place] [address] 05/04/2024 9:30 AM CDT Office Visit [facility] [address] [place] [address] Sofía Mueller MD [address] [place] [address] 08/09/2024 1:20 PM CUSTOMER EXPERIENCE STRATEGIST Office Visit [address] [place] [phone] Lina Daniels MD [address] [place] [address] [place] [address] 11/01/2024 3:20 PM CDT Office Visit [address] [address] Lina Daniels MD [address] [place] [address] 01/24/2025 3:20 PM CDT Office Visit [address] [phone] Lina Daniels MD [address] [place] [address] documented as of this encounter Visit Diagnoses Not on filedocumented in this encounter Care Teams Senior Teradata Developer Relationship Specialty Start Date End Date Johnny Hamilton MD [address] [place] [address] PCP - General 01/19/23 Sofía Mueller MD [address] [place] [address] Assigned OBGYN Provider 04/26/21 Lina Daniels MD [facility] [address] [place] [address] Physical Medicine and Rehabilitation 02/22/24 documented as of this encounter
--- OUTSIDE RECORDS SUMMARY | 2024-03-09 07:56 | XMS_ITS | Encounter Summary ---
Author Organization [place] Address [address] [place] [address]. [place] [address] Care Team Providers Care Orthotic Aide Name Role Phone Sofía Mueller MD Unavailable [phone] Johnny Hamilton MD Primary Care Provider [phone] Lina Daniels MD Unavailable [phone] Encounter Details Date Type Department Care Team (Late Contact Info) Description 02/22/2024 Medical Correspondence [facility] [address] [place] [address] Scan, Non-Provider Social History Tobacco Use Types Packs/Day Years [...] Department Care Team (Late Contact Info) Description 04/11/2024 9:40 AM CDT Office Visit [facility] [address] [place] [address] Lina Daniels MD [facility] [address] [place] [address] 05/04/2024 9:30 AM CDT Office Visit [facility] [address] [place] [address] Sofía Mueller MD [address] [place] [address] 08/09/2024 1:20 PM SUBSORTER Office Visit [address] [place] [phone] Lina Daniels MD [address] [place] [address] 11/01/2024 3:20 PM CDT Office Visit [address] [place] [address] Lina Daniels MD [address] [place] [address] 01/24/2025 3:20 PM CDT Office Visit [address] [place] [phone] Lina Daniels MD [address] [place] [address] documented as of this encounter Visit Diagnoses Not on filedocumented in this encounter Care Teams Orthotic Aide Relationship Specialty Start Date End Date Johnny Hamilton MD [facility] [place] [address] PCP - General 01/19/23 Sofía Mueller MD [address] [place] [address] Assigned OBGYN Provider 04/26/21 Lina Daniels MD [address] [place] [address] Physical Medicine and Rehabilitation 02/22/24 documented as of this encounter
--- OUTSIDE RECORDS SUMMARY | 2024-03-09 07:56 | XMS_ITS | Encounter Summary ---
Author Organization [place] Address [address] [place] [address]. [place] [address] Care Team Providers Care Deckhand Engineer Name Role Phone Rashel Call MD Primary Care Provider Sofía Mueller MD Unavailable [phone] Johnny Hamilton MD Primary Care Provider [phone] Lina Daniels MD Unavailable [phone] Reason for Visit * Reason Onset Date Comments Contraception 01/05/2023 Encounter Details Date Type Department Care Team (Late st Contact Info) Description 01/05/2023 MyC Medical Advice [facility] Women[facility] [address] [place] [address] Sofía Mueller MD [address] [place] [address] Contraception Social History Tobacco Use Types Packs/Day [...] - 01/07/2023 11:55 AM CDT Please see [facility] msgs. Pt requesting new OCP due to migraines. Currently on levonorgestrel-ethinyl estradiol (AVIANE) Last OV: 04/29/23 ASHOK Knowles * Telephone Encounter - Eleni Ortiz RN - 01/05/2023 9:24 AM CDT Pt advised via [facility]. ASHOK Knowles documented in this encounter Plan of Treatment Upcoming Encounters Date Type Department Care Team (Late st Contact Info) Description 04/11/2024 9:40 AM CDT Office Visit [facility] [address] [phone] Lina Daniels MD [address] [place] [address] 05/04/2024 9:30 AM CDT Office Visit [facility] Women[facility] [address] [place] [phone] Sofía Mueller MD [address] [place] [address] 08/09/2024 1:20 PM ELECTRONIC DEVICE MONITOR Office Visit [address] [place] [phone] Lina Daniels MD [address] [place] [address] 11/01/2024 3:20 PM CDT Office Visit [address] [phone] Lina Daniels MD [address] [place] [address] 01/24/2025 3:20 PM CDT Office Visit [address] [phone] Lina Daniels MD [address] [place] [address] documented as of this encounter Visit Diagnoses Not on filedocumented in this encounter Care Teams Deckhand Engineer Relationship Specialty Start Date End Date Rashel Call MD PCP - General Family Practice 04/15/14 01/18/23 Johnny Hamilton MD [address] [place] [address] PCP - General 01/19/23 Sofía Mueller MD [address] [place] [address] Assigned OBGYN Provider 04/26/21 Lina Daniels MD [address] [place] [address] Physical Medicine and Rehabilitation 02/22/24 documented as of this encounter
--- OUTSIDE RECORDS SUMMARY | 2024-03-09 07:56 | XMS_ITS | Encounter Summary ---
Author Organization [facility] Address [address] [place] [address]. [place] [address] Care Team Providers Care Spanisher Name Role Phone Rashel Call MD Primary Care Provider Sofía Mueller MD Unavailable [phone] Johnny Hamilton MD Primary Care Provider [phone] Lina Daniels MD Unavailable Encounter Details Date Type Department Care Team (Late st Contact Info) Description 05/22/2021 MyC Medical Advice [facility] [address] [place] [address] Sofía Mueller MD [address] [place], [place] [phone] Contraceptive management (Primary Dx) Social History Tobacco [...] Description 04/11/2024 9:40 AM CDT Office Visit [facility] [address]rd [place] [address] iLna Daniels MD [address] [place], [place] [address] [address] [place] [address] 05/04/2024 9:30 AM CDT Office Visit [facility] [address] [place] [address] Sofía Mueller MD [address] [place] [address] 08/09/2024 1:20 PM OUTREACH EDUCATOR Office Visit [address] [place] [phone] Lina Daniels MD [address] [place], [place] [address] [address] [place] [address] 11/01/2024 3:20 PM CDT Office Visit [address] [place] [phone] Lina Daniels MD [address] [place] [address] [place] [address] 01/24/2025 3:20 PM CDT Office Visit [address] [place] [phone] Lina Daniels MD [address] [place] [address] [employer] [address] [place] [address] documented as of this encounter Visit Diagnoses Diagnosis Contraceptive management- Primary Unspecified contraceptive management documented in this encounter Care Teams Spanisher Relationship Specialty Start Date End Date Rashel Call MD PCP - General Family Practice 04/15/14 01/18/23 Johnny Hamilton MD [address] [place] [address] PCP - General 01/19/23 Sofía Mueller MD [address] [place] [address] Assigned OBGYN Provider 04/26/21 Lina Daniels MD [address] [place] [address] [phone] Physical Medicine and Rehabilitation 02/22/24 documented as of this encounter
--- OUTSIDE RECORDS SUMMARY | 2024-03-09 07:56 | XMS_ITS | Encounter Summary ---
Author Organization [facility] Address [address] [place] [address] Care Team Providers Care Grants And Contracts Assistant Name Role Phone Sofía Mueller MD Unavailable [phone] Johnny Hamilton MD Primary Care Provider [phone] Lina Daniels MD Unavailable [phone] Encounter Details Date Type Department Care Team (Latest Contact Info) Description 02/27/2024 Travel Social History Tobacco Use Types Packs/Day [...] Description 04/11/2024 9:40 AM CDT Office Visit [facility] Rehabilitation [facility] [place] [address] [facility] [address] 3rd [place] [address] Lina Daniels MD [facility] [address] [place] [address] 05/04/2024 9:30 AM CDT Office Visit [facility] [address] [place] [address] Sofía Mueller MD [address] [place] [address] 08/09/2024 1:20 PM MASKING MACHINE FEEDER Office Visit [address] [place] [phone] Lina Daniels MD [address] [place] [address] [address] [place] [address] 11/01/2024 3:20 PM CDT Office Visit [address] [phone] Lina Daniels MD [address] [place] [address] 01/24/2025 3:20 PM CDT Office Visit [address] [phone] Lina Daniels MD [address] [place] [address] documented as of this encounter Visit Diagnoses Not on filedocumented in this encounter Care Teams Grants And Contracts Assistant Relationship Specialty Start Date End Date Johnny Hamilton MD [address] [place] [address] PCP - General 01/19/23 Sofía Mueller MD [address] [place] [address] Assigned OBGYN Provider 04/26/21 Lina Daniels MD [facility] [address] [place] [address] Physical Medicine and Rehabilitation 02/22/24 documented as of this encounter
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
--- OUTSIDE RECORDS SUMMARY | 2024-03-09 07:56 | XMS_ITS | Encounter Summary ---
Author Organization [facility] Address [address] [place] [address] Care Team Providers Care Investigator Vice Name Role Phone Sofía Mueller MD Unavailable [phone] Johnny Hamilton MD Primary Care Provider [phone] Lina Daniels MD Unavailable [phone] Reason for Visit * Reason Comments Consult New pmr * Consultation (Routine) - Pending Review Specialty Diagnoses / Procedures Referred By Contac t Referred To Contact Diagnoses Chronic migraine without aura, not intractable, without status migrainosus Brit Alcala D[facility] [address] [place] [address] Referral ID Status Reason Start Date Expiration Date V isits Requested Visits Authorized [id number] Pending Review 02/23/2024 02/22/2025 1 1 Encounter Details Date Type Department Care Team (Late st Contact Info) Description 02/29/2024 10:20 AM CDT Office Visit [facility] Rehabilitation Clinic [address] 3rd [place] [address] Brit Alcala [facility] [address] [place] [address] Lina Daniels MD [facility] [address] Chronic migraine without aura, not intractable, without status migrainosus Social History Tobacco Use Types Packs/Day Years [...] Description 04/11/2024 9:40 AM CDT Office Visit [facility] [address] [phone] Lina Daniels MD [address] [place], [place] [address] [address] [place] [address] 05/04/2024 9:30 AM CDT Office Visit [facility] [address] [place] [phone] Sofía Mueller MD [address] [place] [address] 08/09/2024 1:20 PM DIESEL LOCOMOTIVE FIRER/FIREMAN Office Visit [address] [place] [phone] Lina Daniels MD [address] [place] [address] [place] [address] 11/01/2024 3:20 PM CDT Office Visit [address] [place] [phone] Lina Daniels MD [address] [place] [phone] 01/24/2025 3:20 PM CDT Office Visit [facility] [address] [place] [phone] Lina Daniels MD [address] [place] [address] documented as of this encounter Visit Diagnoses Diagnosis Chronic migraine without aura, not intractable, without status migrainosus documented in this encounter Care Teams Investigator Vice Relationship Specialty Start Date End Date Johnny Hamilton MD [address] [place] [address] PCP - General 01/19/23 Sofía Mueller MD [address] [place] [address] Assigned OBGYN Provider 04/26/21 Lina Daniels MD [address] [place] [address] Physical Medicine and Rehabilitation 02/22/24 documented as of this encounter
--- OUTSIDE RECORDS SUMMARY | 2024-03-09 07:56 | XMS_ITS | Encounter Summary ---
Author Organization [place] Address [address] [place] [address] Care Team Providers Care Pan Helper Name Role Phone Rashel Call MD Primary Care Provider [phone] Sofía Mueller MD Unavailable [phone] Johnny Hamilton MD Primary Care Provider [phone] Lina Daniels MD Unavailable [phone] Encounter Details Date Type Department Care Team (Late st Contact Info) Description 09/13/2018 MyC Medical Advice [facility] [place] [address] [place] [address] Jimmie Owen, [facility] [employer] [facility] [address] [facility] [address] [place], [place] [phone] Social History Tobacco Use Types Packs/Day Years [...] Description 04/11/2024 9:40 AM CDT Office Visit [facility] [address] 3rd [place] [address] Lina Daniels MD [address] [place], [place] [address] [address] [place] [address] 05/04/2024 9:30 AM CDT Office Visit [facility] [address] [place] [address] Sofía Mueller MD [address] [place] [address] 08/09/2024 1:20 PM HOP WEIGHER Office Visit [address] [place] [phone] Lina Daniels MD [address] [place] [address] [employer] [address] [place] [address] 11/01/2024 3:20 PM CDT Office Visit [address] [employer] [address] [place] [phone] Lina Daniels MD [address] [place] [address] [employer] [address] [place] [address] 01/24/2025 3:20 PM CDT Office Visit [address] [employer] [address] [place] [phone] Lina Daniels MD [address] [place] [address] [employer] [address] [place] [address] documented as of this encounter Visit Diagnoses Not on filedocumented in this encounter Care Teams Pan Helper Relationship Specialty Start Date End Date Rashel Call MD PCP - General Family Practice 04/15/14 01/18/23 Johnny Hamilton MD [address] [place] [address] PCP - General 01/19/23 Sofía Mueller MD [address] [place] [address] Assigned OBGYN Provider 04/26/21 Lina Daniels MD [address] [place] [address] [phone] Physical Medicine and Rehabilitation 02/22/24 documented as of this encounter
--- OUTSIDE RECORDS SUMMARY | 2024-03-09 07:56 | XMS_ITS | Encounter Summary ---
Author Organization [facility] Address [address] [place] [address] Care Team Providers Care Mid Teacher Name Role Phone Sofía Mueller MD Unavailable [phone] Johnny Hamilton MD Primary Care Provider [phone] Lina Daniels MD Unavailable [phone] Encounter Details Date Type Department Care Team (Late Contact Info) Description 02/29/2024 MyC Medical Advice [facility] Rehabilitation Clinic [address] [address] Lina Daniels MD [facility] [address] [place] [address] Social History Tobacco Use Types Packs/Day Years [...] Description 04/11/2024 9:40 AM CDT Office Visit [facility] [address] [phone] Lina Daniels MD [address] [place], [place] [address] [address] [place] [address] 05/04/2024 9:30 AM CDT Office Visit [facility] [address] [place] [phone] Sofía Mueller MD [address] [place] [address] 08/09/2024 1:20 PM MAINTENANCE INSTRUCTOR Office Visit [address] [employer] [address] [place] [phone] Lina Daniels MD [address] [place] [address] [employer] [address] [place] [address] 11/01/2024 3:20 PM CDT Office Visit [address] [place] [phone] Lina Daniels MD [address] [place] [address] [employer] [address] [place] [address] 01/24/2025 3:20 PM CDT Office Visit [address] [employer] [address] [place] [phone] Lina Daniels MD [address] [place] [address] [employer] [address] [place] [address] documented as of this encounter Visit Diagnoses Not on filedocumented in this encounter Care Teams Mid Teacher Relationship Specialty Start Date End Date Johnny Hamilton MD [address] [place] [address] PCP - General 01/19/23 Sofía Mueller MD [address] [place] [address] Assigned OBGYN Provider 04/26/21 Lina Daniels MD [address] [place] [address] Physical Medicine and Rehabilitation 02/22/24 documented as of this encounter
--- OUTSIDE RECORDS SUMMARY | 2024-03-09 07:56 | XMS_ITS | Referral Summary ---
Author Organization [facility] Address [address] [place] [address] Care Team Providers Care Faucets Assembler Name Role Phone Sofía Mueller MD Unavailable [phone] Johnny Hamilton MD Primary Care Provider [phone] Lina Daniels MD Unavailable + [phone] Encounters Date Type Department Care Team Description 03/08/[address] [phone] Sofía Mueller MD Medication Refill 03/08/2024 MyC Medical Advice [facility] Physical Medicine and Rehabilitation [address] [phone] Lina Daniels MD 02/29/2024 MyC Medical Advice [facility] Physical Medicine and Rehabilitation [address] [phone] Lina Daniels MD 02/29/2024 Travel 02/29/2024 10:20 AM CDT Office Visit [facility] Physical Medicine and Rehabilitation [address] [phone] Brit Alcala DDS Standal, Stephanie Erin, MD Chronic migraine without aura, not intractable, without status migrainosus 02/27/2024 Travel 02/23/2024 Transcribe Orders GENERIC EXTERNAL DATA DEPARTMENT Provider, Generic External Data Chronic migraine without aura, not intractable, without status migrainosus (Primary Dx) 02/22/2024 Medical Correspondence M [facility] Info Mgmt Srvcs [address] [address] Scan, Non-Provider 12/29/2023 MyC Medical Advice [facility] [place] [address] [place] [address] Neda Su from Last 3 Months Allergies Active Allergy Reactions Criticality Noted Date Comments Amoxicillin Hives 04/24/2014 Cephalosporins Hives 04/24/2014 Gabapentin Other (See Comments),Swelling 2013 & pain Penicillins Hives 04/24/2014 Prednisone 03/22/2018 Sulfanilamide Hives 04/24/2014 Medications Medication Sig Dispensed Refills Start Date End Date Status Calcium Carbonate (CALCIUM 600 PO) Take 1 [...] Take 600 mg by mouth daily Active [facility]ilion-3 Fatty Acids (OMEGA-3 FISH OIL PO) Take 1 g by mouth daily Active Probiotic Product (PROBIOTIC DAILY PO) Take 1 capsule by mouth daily Active propranolol ER (INDERAL LA) 60 MG 24 hr capsule TAKE 1 CAP BY MOUTH DAILY AT BEDTIME 12/28/2022 Active diazepam (VALIUM) 2 MG tablet 1 - 2 MG (0.5 - 1 X 2 MG) ORALLY THREE TIMES A DAY NEEDED FOR MUSCLE SPASM 12/06/2022 Active Drospirenone 4 MG TABSIndications:Per imenopause,Encounte r for other contraceptive management Take 4 mg by mouth daily 84 tablet 3 04/22/2023 Active VALACYCLOVIR HCL PO Take 2,000 mg by mouth 2 times daily as needed 4 Discontinued drospirenone-ethiny l estradiol (RAYMOND) 3-0.02 MG tabletIndications:E ncounter for other contraceptive management Take 1 tablet by mouth daily 84 tablet 3 04/29/2022 4 Discontinued Azelastine HCl 137 MCG/SPRAY SOLN SPRAY 1-2 SPRAYS INTO BOTH NOSTRILS TWICE A DAY NEEDED 12/27/2022 4 Discontinued sertraline (ZOLOFT) 25 MG tablet 11/01/2022 4 Discontinued valACYclovir (VALTREX) 1000 mg tablet TAKE 2 TABS BY MOUTH TWICE DAILY NEEDED FOR COLD SORES 05/20/2022 4 Discontinued norethindrone (MICRONOR) 0.35 MG tabletIndications:B irth control counseling Take 1 tablet (0.35 mg) by mouth daily 112 tablet 3 01/21/2023 4 Discontinued Resolved Problems Problem Noted Date Diagnosed Date [...] Description 04/11/2024 9:40 AM CDT Office Visit [facility] Physical Medicine and Rehabilitation Clinic [address] 3rd [place] [address] Lina Daniels MD [address] [place] [address] [place] [address] 05/04/2024 9:30 AM CDT Office Visit [facility]'s [facility] [address] [facility] [address] [place] [phone] Sofía Mueller MD [address] [place] [address] 08/09/2024 1:20 PM DINING ROOM TABLES SET UP ATTENDANT Office Visit [address] [place] [phone] Lina Daniels MD [address] [place] [address] [place] [address] 11/01/2024 3:20 PM CDT Office Visit [address] [place] [phone] Lina Daniels MD [address] [place] [address] [place] [address] 01/24/2025 3:20 PM CDT Office Visit [address] [place] [phone] Lina Daniels MD [address] [place] [address] [place] [address] Procedures Procedure Name Priority Date/Time Associated Diagnosis [...] Malignancy (NILM) 04/23/2021 10:14 AM CDT [facility] Specimen Adequacy Satisfactory for evaluation, endocervical/logan sformation zone component absent 04/23/2021 10:14 AM CDT [facility] Clinical Information none 04/23/2021 10:14 AM CDT [facility] LMP/Menopause Date 04/17/2021 04/23/2021 10:14 AM CDT [facility] Reflex Testing Yes regardless of result 04/23/2021 10:14 AM CDT [facility] Previous Abnormal? No 04/23/2021 10:14 AM CDT [facility] Performing Labs The technical component of this testing was completed at [facility] 04/23/2021 10:14 AM CDT [facility] Brushing CERVIX UTERI STRUCTURE / Unknown 04/21/2021 10:29 AM CDT 04/21/2021 10:50 AM CDT Sofía KAMARA - MARITZA MENDOZA [facility] [address] [place] [address], [facility] [phone] * HPV High Risk Types DNA Cervical (04/21/2021 10:29 AM CDT) Other HR HPV Negative Negative 04/27/2021 1:58 PM CDT [facility] HPV16 DNA Negative Negative 04/27/2021 1:58 PM CDT [facility] HPV18 DNA Negative Negative 04/27/2021 1:58 PM CDT [facility] FINAL DIAGNOSIS This patient's sample is negative for HPV DNA. This test was developed and its performance characteristics determined by the [facility], Molecular Diagnostics Laboratory. It has not [...] followup is recommended. 04/27/2021 1:58 PM CDT [facility] Brushing CERVIX UTERI STRUCTURE / Unknown Non-blood Collection / Unknown 04/21/2021 10:29 AM CDT 04/24/2021 9:06 AM CDT Sofía Mueller MD LAB - BLOOD ORDERABL ES [facility] Molecular Diagnostics Lab [address] [facility] [place] [address], [facility] [phone] * Comprehensive metabolic panel (03/22/2018 8:45 PM CDT) Sodium 141 133 - 144 mmol/L 03/22/2018 9:15 PM CDT [facility] Potassium 3.5 3.4 - 5.3 mmol/L 03/22/2018 9:15 PM CDT [facility] Chloride 105 94 - 109 mmol/L 03/22/2018 9:15 PM [facility] Carbon Dioxide 25 20 - 32 mmol/L 03/22/2018 9:15 PM [facility] Anion Gap 11 3 - 14 mmol/L 03/22/2018 9:15 PM [facility] Glucose 92 70 - 99 mg/dL 03/22/2018 9:15 PM [facility] Urea Nitrogen 25 7 - 30 mg/dL 03/22/2018 9:15 PM [facility] Creatinine 0.90 0.52 - 1.04 mg/dL 03/22/2018 9:15 PM [facility] GFR Estimate 69 >60 mL/min/1.7 m2 03/22/2018 9:15 PM [facility] Comment:Non GFR Calc GFR Estimate If Black 83 >60 mL/min/1.7 m2 03/22/2018 9:15 PM [facility] Comment: GFR Calc Calcium 8.5 8.5 - 10.1 mg/dL 03/22/2018 9:15 PM [facility] Bilirubin Total 0.3 0.2 - 1.3 mg/dL 03/22/2018 9:15 PM [facility] Albumin 4.2 3.4 - 5.0 g/dL 03/22/2018 9:15 PM [facility] Protein Total 7.4 6.8 - 8.8 g/dL 03/22/2018 9:15 PM [facility] Alkaline Phosphatase 60 40 - 150 U/L 03/22/2018 9:15 PM [facility] ALT 35 0 - 50 U/L 03/22/2018 9:15 PM [facility] AST 21 0 - 45 U/L 03/22/2018 9:15 PM [facility] Blood specimen (specimen) 03/22/2018 8:45 PM CDT 03/22/2018 8:46 PM CDT Teresa Harvey MD LAB - BLOOD ORDERA BLES [facility] [address] [place] [address], [facility] [phone] from Last 3 Months or Most Recently Relevant to Health Maintenance Advance Directives For more information, please contact: [phone] * Full Code (Latest Code Status on File) Date Activated Date Inactivated Comments 05/28/2016 10:44 AM Care Teams Faucets Assembler Relationship Specialty Start Date End Date Johnny Hamilton MD [address] [place] [address] PCP - General 01/19/23 Sofía Mueller MD [address] [place] [address] Assigned OBGYN Provider 04/26/21 Lina Daniels MD [address] [place] [address] [place] [address] Physical Medicine and Rehabilitation 02/22/24
--- OUTSIDE RECORDS SUMMARY | 2024-03-09 07:56 | XMS_ITS | Encounter Summary ---
Author Organization [facility] Address [address] [place] [address] Care Team Providers Care Steel Rule Die Maker Apprentice Name Role Phone Sofía Mueller MD Unavailable [phone] Johnny Hamilton MD Primary Care Provider [phone] Lina Day MD Unavailable [phone] Reason for Referral * Consultation (Routine) - Pending Review Specialty Diagnoses / Procedures Referred By Contlona t Referred To Contact Diagnoses Chronic migraine without aura, not intractable, without status migrainosus Brit Alcala DDS [facility] [address] [place] [address] Referral ID Status Reason Start Date Expiration Date V isits Requested Visits Authorized [id number] Pending Review 02/23/2024 02/22/2025 1 1 Question Answer Reason for Referral: Other My Clinical Question Is: CHRONIC MIGRAINE W/O AURA Scheduling Instructions: [facility] will call you to coordinate your care as prescribed by your provider. A food service sales representatives will call you within 2 business days to help schedule your appointment, or you may contact the [facility] Candy Catcher at . Additional Information: REFERRED TO DR DAY Comments Referral Transcribed by external fax Provider: BRIT ALCALA affiliated with [facility]. VA: No If yes was is the VA Authorization Number: Phone number: [phone] Fax number: [phone] [facility] will call you to coordinate your care as prescribed by your provider. A food service sales representatives will call you within 2 business days to help schedule your appointment, or you may contact the [facility] Candy Catcher at . Encounter Details Date Type Department Care Team (Late st Contact Info) Description 02/23/2024 Transcribe Orders GENERIC EXTERNAL DATA DEPARTMENT Provider, Generic External Data Chronic migraine without aura, not intractable, without status migrainosus (Primary Dx) Social History Tobacco Use Types [...] Description 04/11/2024 9:40 AM CDT Office Visit [facility] Physical Medicine and Rehabilitation Clinic [address] [phone] Lina Day MD [address] [place] [address] [place] [address] 05/04/2024 9:30 AM CDT Office Visit [facility] Women's [address] [place] [address] [place] [phone] Sofía Mueller MD [address] [place], [place] [address] 08/09/2024 1:20 PM PREDATORY ANIMAL HUNTER Office Visit [address] [place] [phone] Lina Day MD [address] [place] [address] 11/01/2024 3:20 PM CDT Office Visit [address] [phone] Lina Day MD [address] [place] [address] 01/24/2025 3:20 PM CDT Office Visit [address] [phone] Lina Day MD [address] [place] [address] Scheduled Referrals Name Type Priority Associated Diagnoses Orde r Schedule Adult Physical Medicine and Rehab Acute Care Certified Nursing Assistant Referral Referral Routine Chronic migraine without aura, not intractable, without status migrainosus Expected: 02/23/2024 (Approximate), Expires: 02/22/2025 documented as of this encounter Visit Diagnoses Diagnosis Chronic migraine without aura, not intractable, without status migrainosus- Primary documented in this encounter Care Teams Steel Rule Die Maker Apprentice Relationship Specialty Start Date End Date Johnny Hamilton MD [address] [place] [address] PCP - General 01/19/23 Sofía Mueller MD [address] [place] [address] Assigned OBGYN Provider 04/26/21 Lina Day MD [address] [place] [address] Physical Medicine and Rehabilitation 02/22/24 documented as of this encounter
--- OUTSIDE RECORDS SUMMARY | 2024-03-09 07:56 | XMS_ITS | Encounter Summary ---
Author Organization [facility] Address [address] [place] [address] Care Team Providers Care Operations Support Representative Name Role Phone Rashel Call MD Primary Care Provider [phone] Sofía Mueller MD Unavailable [phone] Johnny Hamilton MD Primary Care Provider [phone] Lina Daniels MD Unavailable [phone] Encounter Details Date Type Department Care Team (Late st Contact Info) Description 02/20/2019 MyC Medical Advice [facility] [place] [address] [facility] [address] [place] [address] Jimmie Owen, [facility] [address] [facility] [address] [place], [place] [phone] Social History Tobacco Use Types Packs/Day Years [...] Description 04/11/2024 9:40 AM CDT Office Visit [facility] Physical Medicine [facility] Rehabilitation Clinic [address] 3rd [place] [address] Lina Daniels MD [address] [place], [place] [address] [address] [place] [address] 05/04/2024 9:30 AM CDT Office Visit [facility] [address] [place] [address] Sofía Mueller MD [address] [place] [address] 08/09/2024 1:20 PM CARD DOFFER Office Visit [address] [place] [phone] Lina Daniels MD [address] [place] [address] [employer] [address] [place] [address] 11/01/2024 3:20 PM CDT Office Visit [address] [email or web address] [address] [place] [phone] Lina Daniels MD [address] [place] [address] [employer] [address] [place] [address] 01/24/2025 3:20 PM CDT Office Visit [address] [email or web address] [address] [place] [phone] Lina Daniels MD [address] [place] [address] [employer] [address] [place] [address] documented as of this encounter Visit Diagnoses Not on filedocumented in this encounter Care Teams Operations Support Representative Relationship Specialty Start Date End Date Rashel Call MD PCP - General Family Practice 04/15/14 01/18/23 Johnny Hamilton MD [address] [place] [address] PCP - General 01/19/23 Sofía Mueller MD [address] [place] [address] Assigned OBGYN Provider 04/26/21 Lina Daniels MD [address] [place] [phone] Physical Medicine and Rehabilitation 02/22/24 documented as of this encounter
--- OUTSIDE RECORDS SUMMARY | 2024-03-09 07:56 | XMS_ITS | Clinical Summary ---
Author Organization [facility] Address [address] [place] [address] Care Team Providers Care Batch Maker Name Role Phone Sofía Mueller MD Unavailable [phone] Johnny Hamilton MD Primary Care Provider Lina Daniels MD Unavailable [phone] Allergies Active Allergy Reactions Criticality Noted Date [...] Take 600 mg by mouth daily Active [facility]-3 Fatty Acids (OMEGA-3 FISH OIL PO) Take [...] Type Department Care Team Description 03/08/[address] [phone] Sofía Mueller MD Medication Refill 03/08/2024 MyC Medical Advice [facility] Physical Medicine and Rehabilitation Clinic [address] [phone] Lina Daniels MD 02/29/2024 10:20 AM CDT Office Visit [facility] Physical Medicine and Rehabilitation [address] [phone] Brit Alcala, Lina Khan MD Chronic migraine without aura, not intractable, without status migrainosus 02/29/2024 MyC Medical Advice [facility] Physical Medicine [facility] Rehabilitation Clinic [address] 3rd [place] [address] Lina Daniels MD 02/29/2024 Travel 02/27/2024 Travel 02/23/2024 Transcribe Orders GENERIC EXTERNAL DATA DEPARTMENT Provider, Generic External Data Chronic migraine without aura, not intractable, without status migrainosus (Primary Dx) 02/22/2024 Medical Correspondence [facility] Info Mgmt Srvcs [address] [place] [address] Scan, Non-Provider 12/29/2023 MyC Medical Advice [facility] [address] [place] [address] [place] [phone] Neda Su from Last 3 Months Family [...] Description 04/11/2024 9:40 AM CDT Office Visit [facility] Physical Medicine and Rehabilitation [address] 3rd [place] [address] Lina Daniels MD [address] [place], [place] [address] [address] [place] [address] 05/04/2024 9:30 AM CDT Office Visit [facility] Women's [facility] [address] [facility] [address] [place] [phone] Sofía Mueller MD [address] [place] [address] 08/09/2024 1:20 PM MANAGER TELEMETRY Office Visit [address] [place] [phone] Lina Daniels MD [address] [place] [address] [place] [address] 11/01/2024 3:20 PM CDT Office Visit [address] [employer] [address] [place] [phone] Lina Daniels MD [address] [place], [place] [address] [facility] [address] [place] [address] 01/24/2025 3:20 PM CDT Office Visit [address] [place] [phone] Lina Daniels MD [address] [place] [address] [place] [address] Health Maintenance Due Date Last Done Comments ADVANCE CARE PLANNING 1977 ANNUAL REVIEW OF HM ORDERS 1977 CT COLONOGRAPHY 1977 FIT 1977 FLEX SIG 1977 sDNA (Cologuard) 1977 COLONOSCOPY 1987 COLORECTAL CANCER SCREENING 1987 HIV SCREENING 1992 HEPATITIS C SCREENING 1995 HEPATITIS B IMMUNIZATION (1 of 3 - 19+ 3-dose series) 1996 LIPID 2017 GLUCOSE 03/22/2021 03/22/2018 MAMMO SCREENING 01/16/2022 01/16/2021 PHQ-2 (once per calendar year) 2023 01/21/2023, 04/29/2022, 04/21/2021 COVID-19 Vaccine (4 - 2022-2 4 season) 2024 05/24/2021, 08/20/2020, 07/23/2020 INFLUENZA VACCINE (#1) 2024 , 05/16/2020 YEARLY PREVENTIVE VISIT 04/22/2024 04/22/20 23, 04/21/2021 HPV TEST 04/21/2026 04/21/2021, 10/07/2016 PAP 04/21/2026 04/21/2021, 10/07/2016, 10/07/2016 DTAP/TDAP/TD IMMUNIZATION (3 - Td or Tdap) 02/09/2034 02/10/2024, 03/20/2013 HPV IMMUNIZATION Aged Out No longer e [...] or Malignancy (NILM) 04/23/2021 10:14 AM CDT [facility] Specimen Adequacy Satisfactory for evaluation, endocervical/logan sformation zone component absent 04/23/2021 10:14 AM CDT [facility] Clinical Information none 04/23/2021 10:14 AM CDT [facility] LMP/Menopause Date 04/17/2021 04/23/2021 10:14 AM CDT [facility] Reflex Testing Yes regardless of result 04/23/2021 10:14 AM CDT [facility] Previous Abnormal? No 04/23/2021 10:14 AM CDT [facility] Performing Labs The technical component of this testing was completed at [facility] 04/23/2021 10:14 AM CDT [facility] Brushing CERVIX UTERI STRUCTURE / Unknown 04/21/2021 10:29 AM CDT 04/21/2021 10:50 AM CDT Sofía KAMARA - MARITZA MENDOZA [facility] [address] [place] [address], [facility] [phone] * HPV High Risk Types DNA Cervical (04/21/2021 10:29 AM CDT) Other HR HPV Negative Negative 04/27/2021 1:58 PM CDT [facility] HPV16 DNA Negative Negative 04/27/2021 1:58 PM CDT [facility] HPV18 DNA Negative Negative 04/27/2021 1:58 PM CDT [facility] FINAL DIAGNOSIS This patient's sample is negative for HPV DNA. This test was developed and its performance characteristics determined by the [facility], Molecular Diagnostics Laboratory. It [...] followup is recommended. 04/27/2021 1:58 PM CDT [facility] Brushing CERVIX UTERI STRUCTURE / Unknown Non-blood Collection / Unknown 04/21/2021 10:29 AM CDT 04/24/2021 9:06 AM CDT Sofía Mueller MD LAB - BLOOD ORDERABL ES [facility] Molecular Diagnostics Lab [address] [facility] [place] [address], [facility] [phone] * Comprehensive metabolic panel (03/22/2018 8:45 PM CDT) Sodium 141 133 - 144 mmol/L 03/22/2018 9:15 PM CDT [facility] Potassium 3.5 3.4 - 5.3 mmol/L 03/22/2018 9:15 PM CDT [facility] Chloride 105 94 - 109 mmol/L 03/22/2018 9:15 PM CDT [facility] Carbon Dioxide 25 20 - 32 mmol/L 03/22/2018 9:15 PM CDT [facility] Anion Gap 11 3 - 14 mmol/L 03/22/2018 9:15 PM T [facility] Glucose 92 70 - 99 mg/dL 03/22/2018 9:15 PM [facility] Urea Nitrogen 25 7 - 30 mg/dL 03/22/2018 9:15 PM [facility] Creatinine 0.90 0.52 - 1.04 mg/dL 03/22/2018 9:15 PM [facility] GFR Estimate 69 >60 mL/min/1.7 m2 03/22/2018 9:15 PM [facility] Comment:Non GFR Calc GFR Estimate If Black 83 >60 mL/min/1.7 m2 03/22/2018 9:15 PM [facility] Comment: GFR Calc Calcium 8.5 8.5 - 10.1 mg/dL 03/22/2018 9:15 PM [facility] Bilirubin Total 0.3 0.2 - 1.3 mg/dL 03/22/2018 9:15 PM [facility] Albumin 4.2 3.4 - 5.0 g/dL 03/22/2018 9:15 PM [facility] Protein Total 7.4 6.8 - 8.8 g/dL 03/22/2018 9:15 PM [facility] Alkaline Phosphatase 60 40 - 150 U/L 03/22/2018 9:15 PM [facility] ALT 35 0 - 50 U/L 03/22/2018 9:15 PM [facility] AST 21 0 - 45 U/L 03/22/2018 9:15 PM [facility] Blood specimen (specimen) 03/22/2018 8:45 PM CDT 03/22/2018 8:46 PM CDT Teresa Harvey MD LAB - BLOOD ORDERA BLES [facility] [address] [place] [address], [facility] [phone] from Last 3 Months or Most Recently Relevant to Health Maintenance Advance Directives For more information, please contact: [phone] * Full Code (Latest Code Status on File) Date Activated Date Inactivated Comments 05/28/2016 10:44 AM Care Teams Batch Maker Relationship Specialty Start Date End Date Johnny Hamilton MD [address] [address] PCP - General 01/19/23 Sofía Mueller MD [address] [place] [address] Assigned OBGYN Provider 04/26/21 Lina Daniels MD [address] [place] [address] [id number] Physical Medicine and Rehabilitation 02/22/24
--- OUTSIDE RECORDS SUMMARY | 2024-03-09 07:56 | XMS_ITS | Continuity of Care Document ---
Author Organization [facility] Address [address] [place] [phone] Care Team Providers Care Rolled Seat Trimmer Name Role Phone [facility] Unavailable Unav ailable Procedures Procedure Date INTERLAMINAR CRV OR THRC INTERLAMINAR CRV OR THRC Advance Directives Directive Yes / No Effective Date File Name No Information Encounters Encounter Description Practice Location Reason(s) For Visit Diagnoses Date Provider Providers Copied on Encounter [facility], [address] [place] [address], [id number], [facility] [place] Information [facility]. [address] [place] [address], [id number], . tel:[phone] Referring Provider: Silva Mcelroy, [address] [place] [address], [id number]. tel:[phone] [facility], [address] [place] [address], [id number], [facility] [place] No Information [facility]. [address] [place] [address], [id number], . tel:[phone] Referring Provider: Silva Mcelroy, [address] [place] [address], [id number]. tel:[phone] Family History Family Member Type Diagnosis Age At Onset No Information Payers Payer name Insurance type Covered alliance party ID Authoriza tion(s) [employer] Admin Srvs Claims CI [id number] Social History Type Description Quantity Date Captured Comments Sex Female Smoking Status No Information Chief Complaint And Reason For Visit No Information Reason For Referral Reason For Referral No Information History Of Present Illness Encounter Date Complaint History Of Prese nt Illness No Information Functional Status Date Functional Assessmen t No Information Instructions Date Instruction Additional Infor mation No Information Assessments Type Assessment Date No Information Patient Care Teams Name Effective Dates (start - stop) Status Members No Information
--- OUTSIDE RECORDS SUMMARY | 2024-03-09 07:56 | XMS_ITS | Encounter Summary ---
Author Organization [facility] Address [address] [place] [address] Care Team Providers Care Job Estimator Name Role Phone Sofía Mueller MD Unavailable [phone] Johnny Hamilton MD Primary Care Provider [phone] Lina Daniels MD Unavailable [phone] Encounter Details Date Type Department Care Team (Late Contact Info) Description 03/08/2024 MyC Medical Advice [facility] [address] [address] Lina Daniels MD [facility] [address] [place] [address] Social History Tobacco Use Types Packs/Day [...] Description 04/11/2024 9:40 AM CDT Office Visit [facility] [address] [phone] Lina Daniels MD [address] [place], [place] [address] [address] [place] [address] 05/04/2024 9:30 AM CDT Office Visit [facility] [address] [place] [phone] Sofía Mueller MD [address] [place] [address] 08/09/2024 1:20 PM JAVA ORACLE DEVELOPER Office Visit [address] [employer] [address] [place] [phone] Lina Daniels MD [address] [place] [address] [employer] [address] [place] [address] 11/01/2024 3:20 PM CDT Office Visit [address] [employer] [address] [place] [phone] Lina Daniels MD [address] [place] [address] [employer] [address] [place] [address] 01/24/2025 3:20 PM CDT Office Visit [address] [employer] [address] [place] [phone] Lina Daniels MD [address] [place] [address] [employer] [address] [place] [address] documented as of this encounter Visit Diagnoses Not on filedocumented in this encounter Care Teams Job Estimator Relationship Specialty Start Date End Date Johnny Hamilton MD [address] [place] [address] PCP - General 01/19/23 Sofía Mueller MD [address] [place] [address] Assigned OBGYN Provider 04/26/21 Lina Daniels MD [address] [place] [address] Physical Medicine and Rehabilitation 02/22/24 documented as of this encounter
--- OUTSIDE RECORDS SUMMARY | 2024-03-09 07:56 | XMS_ITS | Encounter Summary ---
Author Organization [facility] Address [address] [place] [address]. [place] [address] Care Team Providers Care Manager Division Name Role Phone Rashel Call MD Primary Care Provider [phone] Sofía Mueller MD Unavailable [phone] Johnny Hamilton MD Primary Care Provider [phone] Lina Daniels MD Unavailable [phone] Encounter Details Date Type Department Care Team (Late st Contact Info) Description 07/30/[address] [facility] [address] [place] [address] Sofía Mueller MD [address] [place] [address] Social History Tobacco Use Types Packs/Day Years [...] Description 04/11/2024 9:40 AM CDT Office Visit [facility] [place] [address] [address] Lina Daniels MD [address] [place], [place] [email or web address] [address] [place] [address] 05/04/2024 9:30 AM CDT Office Visit [facility] [address] [place] [address] Sofía Mueller MD [address] [place] [address] 08/09/2024 1:20 PM LINING INSERTER Office Visit [address] [employer] [address] [place] [phone] Lina Daniels MD [address] [place], [place] [address] [address] [place] [address] 11/01/2024 3:20 PM CDT Office Visit [address] [place] [phone] Lina Daniels MD [address] [place], [place] [address] [address] [place] [address] 01/24/2025 3:20 PM CDT Office Visit [address] [place] [phone] Lina Daniels MD [address] [place], [place] [address] [address] [place] [address] documented as of this encounter Visit Diagnoses Not on filedocumented in this encounter Care Teams Manager Division Relationship Specialty Start Date End Date Rashel Call MD PCP - General Family Practice 04/15/14 01/18/23 Johnny Hamilton MD [address] [facility] [place] [address] PCP - General 01/19/23 Sofía Mueller MD [address] [place] [address] Assigned OBGYN Provider 04/26/21 Lina Daniels MD [address] [place] [phone] Physical Medicine and Rehabilitation 02/22/24 documented as of this encounter
--- OUTSIDE RECORDS SUMMARY | 2024-03-09 07:56 | XMS_ITS | Encounter Summary ---
Author Organization [facility] Address [address] [place] [address] Care Team Providers Care Field Marketing Specialist Name Role Phone Sofía Mueller MD Unavailable [phone] Johnny Hamilton MD Primary Care Provider [phone] Lina Daniels MD Unavailable [phone] Encounter Details Date Type Department Care Team (Late st Contact Info) Description 12/29/2023 MyC Medical Advice [facility] [address] [place] [address] Neda Su Social History Tobacco Use Types [...] Description 04/11/2024 9:40 AM CDT Office Visit [facility] [address] [place] [address] Lina Daniels MD [facility] [address] [place] [address] 05/04/2024 9:30 AM CDT Office Visit [facility] [address] [place] [address] Sofía Mueller MD [address] [place] [address] 08/09/2024 1:20 PM FABRICATION LEAD Office Visit [address] [place] [phone] Lina Daniels MD [address] [place] [address] [place] [address] 11/01/2024 3:20 PM CDT Office Visit [address] [place] [phone] Lina Daniels MD [address] [place] [address] [place] [address] 01/24/2025 3:20 PM CDT Office Visit [address] [place] [phone] Lina Daniels MD [address] [place] [address] [place] [address] documented as of this encounter Visit Diagnoses Not on filedocumented in this encounter Care Teams Field Marketing Specialist Relationship Specialty Start Date End Date Johnny Hamilton MD [address] [place] [address] PCP - General 01/19/23 Sofía Mueller MD [address] [place] [address] Assigned OBGYN Provider 04/26/21 Lina Daniels MD [address] [place] [address] Physical Medicine and Rehabilitation 02/22/24 documented as of this encounter
--- OUTSIDE RECORDS SUMMARY | 2024-03-09 07:56 | XMS_ITS | Encounter Summary ---
Author Organization [facility] Address [address] [place] [address] Care Team Providers Care Apartment House Manager Name Role Phone Sofía Mueller MD Unavailable [phone] Johnny Hamilton MD Primary Care Provider [phone] Lina Daniels MD Unavailable [phone] Reason for Visit * Reason Comments Medication Refill Encounter Details Date Type Department Care Team (Late Contact Info) Description 03/08/[address] [address] Sofía Mueller MD [address] [place] [phone] Medication Refill Social History Tobacco Use Types Packs/Day Years [...] Description 04/11/2024 9:40 AM CDT Office Visit [facility] [place] [address] [phone] Lina Daniels MD [address] [place], [place] [address] [address] [place] [address] 05/04/2024 9:30 AM CDT Office Visit [facility] [address] [place] [address] Sofía Mueller MD [address] [place] [address] 08/09/2024 1:20 PM PRINTING SIGN MACHINE OPERATOR Office Visit [address] [address] [place] [phone] Lina Daniels MD [address] [place], [place] [address] [address] [place] [address] 11/01/2024 3:20 PM CDT Office Visit [address] [place] [phone] Lina Daniels MD [address] [place], [place] [address] [address] [place] [address] 01/24/2025 3:20 PM CDT Office Visit [address] [place] [phone] Lina Daniels MD [address] [place], [place] [address] [address] [place] [address] documented as of this encounter Visit Diagnoses Diagnosis Perimenopause Symptomatic menopausal or female climacteric states Encounter for other contraceptive management documented in this encounter Care Teams Apartment House Manager Relationship Specialty Start Date End Date Johnny Hamilton MD [address] [place] [address] PCP - General 01/19/23 Sofía Mueller MD [address] [place] [address] Assigned OBGYN Provider 04/26/21 Lina Daniels MD [address] [place] [address] Physical Medicine and Rehabilitation 02/22/24 documented as of this encounter
--- OUTSIDE RECORDS SUMMARY | 2024-03-09 07:57 | XMS_ITS | Clinical Summary ---
Author Organization [facility] Address [address] [place] [address] Care Team Providers Care Inspector Raw Quartz Name Role Phone Unavailable Primary Care Provider Unavailabl e Source Comments You are receiving this document as you are listed as the primary care provider,follow-up provider, or the patient has been referred to you for consultation.This is in compliance with the Medicare and[facility] EHR Incentive Program,which states Providers who transition their patient to another setting of careor provider of care or refers their patient to another provider of care shouldprovide summary care record for each transition of care or referral. Context Relevant Allergies Active Allergy Reactions Criticality Noted Date [...] 1977 Hep C Screening (Preventive Services) 1977 MTM Covered 1977 Mammogram 1977 HIV Screening (Preventive Services) 1993 Adult Preventive Visit 1995 DTaP/Tdap/Td (1 - Tdap) 1996 HepB (1) 1996 Cholesterol 2022 COVID-19 Vaccine ( - 2022-2 4 season) 2024 Influenza (#1) 2024 Zoster/Shingles (1 of 2) [...]
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
--- OUTSIDE RECORDS SUMMARY | 2024-03-09 07:57 | XMS_ITS | Clinical Summary ---
Author Organization [employer] [facility] Address [place], [place] [address] Care Team Providers Care Document Examiner Name Role Phone Johnny Hamilton MD Primary Care Provider [phone] Rashel Call MD Unavailable [phone] Allergies Active Allergy Reactions Criticality Noted Date [...] ankle, unspecified laterality As directed. Please visit [email or web address] and purchase: [employer] Open Toe Stockings - Size Small ([place] Blue Stripe) 1 Each 08/05/2022 Active Active Problems Problem Noted Date Diagnosed Date ADHD (attention deficit hyperactivity disorder) 12/15/2012 BV (bacterial vaginosis) 03/18/2012 Pain in joint, ankle and foot 04/12/2007 Encounters Date Type Department Care Team Description 02/09/2024 3:00 PM CDT Office Visit [facility] [address] [place] [address] Jaun Sloan MD 02/07/2024 Travel 01/13/2024 Orders Only [facility] [address] [place] [address] Gracy Yan 1 scan: (1-Ord) Zio Report [...] 09/26/2015 1:50 PM CDT Plan of Treatment Upcoming Encounters Date Type Department Care Team (Late st Contact Info) Description 03/09/2024 8:00 AM CDT Ancillary Procedure [facility] [address] [place] [address] Health Maintenance Due Date Last Done Comments [...] 2022 03/20/2013 Mammogram for age 45-75 2022 Tetanus booster 03/20/2023 03/20/2013 COVID-19 vaccine series (2022-24 season) 2024 05/24/2021, 08/20/2020, 07/23/2020 Influenza for age 9-49 03/04/2024 Tdap Completed 03/20/2013 Pneumococcal series for age 6-64 Aged Out No longer eligible based on patient's age to complete this topic Procedures Procedure Name Priority Date/Time Associated Diagnosis Comments EXTENDED HOLTER Routine 01/16/2024 Cardiac arrhythmia LADLE PATCHER THIN PREP PAP SCREEN IMAGED Routine 10/07/2016 8:30 AM CDT LIPID PANEL W REFLEX MEASURED LDL Routine 03/20/2013 8:35 AM CDT Lipid screening from Last 3 Months or Most Recently Relevant to Health Maintenance Results * EXTENDED HOLTER (01/16/2024) Johnny Hamilton MD CARDIAC SERVICES ORD * LADLE PATCHER THIN PREP PAP SCREEN IMAGED (10/07/2016 8:30 AM CDT) Case Report Gynecologic Cytology Report ? Case: [id number] ? Authorizing Provider: ??Josephine Mohamud ?Collected: ? 10/07/2016 0830 ? Bella, ? First Screen: ?Ginger Rod ? Received: ?10/08/2016 1723 ? Specimen: ?LADLE PATCHER ThinPrep Vial Screening, Cervical/Vaginal ? 10/20/2016 10:38 AM CDT [facility] LAB[facility]-C ENTRAL LABORATORY INTERPRETATION/ RESULT NEGATIVE FOR INTRAEPITHELIAL LESION OR MALIGNANCY (NIL) (none) 10/20/2016 10:38 AM T [facility]OR[facility]-C ENTRAL LABORATORY IMEN ADEQUACY Satisfactory for evaluation No endocervical component seen Scant cellularity 10/20/2016 10:38 AM CDT [facility]-C ENTRAL LABORATORY HPV REQUEST HPV and PAP 10/20/2016 10:38 AM CDT [facility] LABOR[facility]-C ENTRAL LABORATORY Date of LMP 09/09/2016 10/20/2016 10:38 AM CDT [facility]-C ENTRAL LABORATORY Last Pap Date 10/20/2016 10:38 AM CDT [facility]-C ENTRAL LABORATORY Comment:2013 Last Pap Result NIL 7 10:38 AM CDT [facility]-C ENTRFL LABORATORY Menstrual Status Hormonally Suppressed 10/20/2016 10:38 AM CDT [facility] ENTRFL LABORATORY Comment:Microgestin Automated Review Successful 10/20/2016 10:38 AM T [facility] ENTRFL LABORATORY Comment:Specimen processed s uccessfully by automated ships equipment engineer device, [employer] KidPrep Imaging System, [employer] ANCILLARY TESTING LADLE PATCHER HPV Ordered, Please see separate report 10/20/2016 10:38 AM T [facility] Note The pap test is a screening technique, not a diagnostic procedure. ??It is used primarily to screen for squamous cancers and precursor lesions. ??Published studies have shown that it is subject to both false negative and false positive results. ??The pap test should not be used as the sole means to diagnose or exclude pre-malignant and malignant lesions. Interpreted at [facility] ([facility], [facility], [facility], [facility], [facility], [facility], [facility]) 10/20/2016 10:38 AM T [facility] Other (Cervical/Vagina l) 10/07/2016 8:30 AM CDT 10/08/2016 5:23 PM CDT Josephine Mohamud MD PATHOLOGY/ CYTOLOGY [facility] [address] [place] [address], * LIPID PANEL W REFLEX MEASURED LDL (03/20/2013 8:35 AM CDT) CHOLESTEROL,TOTA L 180 100 - 199 mg/dL [facility] TRIGLYCERIDES 77 <150 mg/dL [facility] HDL CHOLESTEROL 71 >40 mg/dL [facility] CHOL/HDL RATIO 2.54 <4.50 [facility] NON-HDL CHOLESTEROL 109 Undefined mg/dL [facility] LDL CHOLESTEROL 94 <131 mg/dL [facility] PATIENT STATUS Non-Fast ing [facility] Blood specimen (specimen) BLOOD SPECIMEN / Unknown 03/20/2013 8:35 AM CDT 03/20/2013 8:27 AM CDT Josephine Mohamud MD CHEMISTRY [facility] [place]NAL ZIP [address] [place] [address] from Last 3 Months or Most Recently Relevant to Health Maintenance Advance Directives * Full Code (Latest Code Status on File) Date Activated Date Inactivated Comments 04/12/2007 7:32 AM 04/12/2007 12:53 PM Care Teams Document Examiner Relationship Specialty Start Date End Date Johnny Hamilton MD [address] [place] [address] PCP - General Family Practice 05/05/22 Rashel Call MD [address] [place] [address] Family Practice 05/05/22
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
== END 2024-03-09 07:54 | disposition home or self-care (01) ==
PROVIDERS: PCP Family Medicine; Visit Provider Internal Medicine Cardiovascular Disease
DX: I49.3 Ventricular premature depolarization (principal)
CPT/HCPCS: 93306

== ENCOUNTER 2025-02-22 08:15 | Outpatient (CLI) | payer OTHER, SELFPAY | END 2025-02-22 08:16 | disposition home or self-care (01) | LOC: NFLDREF 02-26 14:42 | PROVIDERS: PCP Family Medicine; Referring Provider Family Medicine; Visit Provider Family Medicine | DX: I49.9 Cardiac arrhythmia, unspecified (principal); R53.83 Other fatigue; I49.3 Ventricular premature depolarization | CPT/HCPCS: 80053; 80061; 82533; 84403; 84443 ==